=== PATIENT | female | born 1940 | race Caucasian/White ===

== ENCOUNTER 2024-09-19 11:54 | Inpatient (IN) | payer MEDICARE, MEDICAID, SELFPAY ==
[2024-09-19] VITALS (8 sets, daily range): BP systolic 101–146; BP diastolic 48–76; PULSE 50–95; RESP 15–18; TEMP 36.4–36.7; O2SAT 53–100
--- NOTE | 2024-09-19 12:20 | XR_ITS ---
Examination: Left hip AP, lateral, AP pelvis 3 views Technique: Hip AP lateral, AP pelvis, 3 views Exam date and time:September 19, 2024 1304 hours INDICATIONS: Patient fell today with into the left hip, left hip pain FINDINGS: Status post operative reduction internal fixation healed left hip fracture No acute hip fracture depicted Right hip bones of the pelvis intact IMPRESSION: No acute hip fracture noted.
--- NOTE | 2024-09-19 12:20 | XR_ITS ---
Examination: CT brain head without contrast. 2-D sagittal coronal reconstructions Date and time of exam:September 19, 2024 1246 hours INDICATIONS: Patient fell today with injury of the head, head pain CTDI: vol (mGy):44.2 DLP: (mGycm):878 Technique: Multiple CT axial sections of the brain have been obtained, 5 mm slice thickness. Contrast has not been administered. 2-D sagittal, coronal reconstructions have been obtained Low dose protocols were performed. One or more of the following dose reduction techniques were used; automated exposure control, adjustment of the mA and/or KV according to patient size, use of iterative reconstruction technique. Findings: No significant ventricular enlargement. Intra-axial or extra-axial hemorrhage density is not seen. No mass effect or midline shift Basal cisterns are not remarkable. Fourth ventricle is midline. Cranial vault intact. Impression: Negative for acute hemorrhage, mass effect or midline shift
--- NOTE | 2024-09-19 12:20 | XR_ITS ---
Examination: CT cervical spine without contrast 2-D sagittal reconstructions 2-D coronal reconstructions 3-D reconstructions. Exam date and time:September 19, 2024 1246 hours INDICATIONS: Patient fell today with injury to the neck, neck pain COMPARISON: September 10, 2022 CTDI:vol (mGy) 6.87 DLP: (mGycm) 143 Technique: Multiple 2 mm axial sections of the cervical spine have been obtained. The coronal and sagittal reconstructions have been obtained. 3-D reconstructions have been obtained. Low dose protocols were performed. One or more of the following dose reduction techniques were used; automated exposure control, adjustment of the mA and/or KV according to patient size, use of iterative reconstruction technique. Findings: Axial sections demonstrate intact base of the skull. C1 exhibit satisfactory relationship to the odontoid. No acute cervical vertebral body fracture seen. Alignment posterior spinous processes satisfactory. Impression: No acute cervical fracture.
--- NOTE | 2024-09-19 12:22 | EDNOTE_ITS ---
ED General RME/HPI General Chief complaint: Fall Stated complaint: LT HIP PAIN Time Seen by Provider: 09/19/24 12:17 Arrival date/time: 09/19/24 11:54 CC: Left hip pain HPI ground-level fall patient states she had a wobbly left leg when getting up from the commode walked over to her bedroom and then promptly fell. Patient denies LOC or syncope. Patient has history of falls, also has a history of subarachnoid hemorrhage states she does not think that she is on blood thinners. Patient is awake alert oriented x [address] Related Data Home Medications ?Medication ?Instructions ?Recorded ?Confirmed atorvastatin 40 mg tablet 40 mg PO QDAY 11/14/21 11/16/23 furosemide 20 mg tablet 20 mg PO QDAY 11/14/21 11/16/23 hydralazine 10 mg tablet 10 mg PO QID 11/14/21 11/16/23 metoprolol succinate 200 mg 200 mg PO QDAY 11/14/21 11/16/23 tablet,extended release 24 hr (Toprol XL) allopurinol 300 mg tablet 300 mg PO QDAY 07/04/22 11/16/23 famotidine 40 mg tablet 40 tab PO HS 07/04/22 11/16/23 isosorbide mononitrate 30 mg 1 tab PO QAM 07/04/22 11/16/23 tablet,extended release 24 hr levothyroxine 88 mcg tablet 1 tab PO QAM 07/04/22 11/16/23 oxybutynin chloride 10 mg 1 tab PO QDAY 07/04/22 11/16/23 tablet,extended release 24 hr sertraline 50 mg tablet 50 mg PO QDAY 07/04/22 11/16/23 trazodone 50 mg tablet 50 mg PO HS 09/11/22 11/16/23 estradiol 10 mcg vaginal tablet 10 mcg vaginal DIRECTED 03/26/23 11/16/23 (Vagifem) Previous Rx's ?Medication ?Instructions ?Recorded ibuprofen 400 mg tablet 400 mg PO Q8H PRN pain #10 tabs 09/16/22 Allergies Allergy/AdvReac Type Severity Reaction Status Date / Time Penicillins Allergy Intermediate SWELLING Verified 11/16/23 15:07 TO BODY Review of Systems Review of Systems Narrative Review of Systems: GEN: No fever, no chills, no weight loss EYES: No discharge, no visual changes, no pain HEENT: No ear pain, no congestion, no sore throat PULM: No shortness of breath, no cough, no congestion CV: No chest pain, no dyspnea on exertion, no palpitations GI: No nausea, no vomiting, no diarrhea, no pain, no constipation : No frequency, no urgency, no dysuria MUSC/SKEL: +hip pain, No joint pain, no back pain SKIN: No rash PSYCH: No hallucinations, no depression HEME/LYMPH: No easy bleeding or bruising tendencies NEURO: No weakness, no headache Past Medical History Past Medical History NEUROLOGIC: Negative Seizures CARDIAC: Positive Myocardial Infarction, Cardiac Arrhythmia, Coronary Artery Disease, Congestive Heart Failure and Hypertension RESPIRATORY: Negative Chronic Obstructive Pulmonary Disease (COPD) GENITOURINARY: Negative Renal Disease ENDOCRINE: Positive Hypothyroidism; Negative Diabetes Mellitus Type 1 or Diabetes Mellitus Type 2 OTHER HISTORY: Negative Blood Transfusions, Blood Transfusion Reaction or Anesthesia Reactions Surgical History SURGICAL: Positive Pacemaker Social History SMOKING STATUS: Never smoker SUBSTANCE USE: does not use ED Exam Narrative Physical exam: [General: Frail, does not appear in any acute distress Head normocephalic, no step-offs hematomas HEENT: Eyes pupils are PERRLA EOMs are intact within acceptable limits Neck is supple nontender Chest equal chest rise nontender to palpation Respiratory: Clear to auscultation no wheezes crackles or rubs CV: Rate rhythm is regular no murmurs rubs or clicks Abdomen is distended secondary to body habitus soft nontender no masses positive bowel sounds all 4 quadrants Back: No CVA tenderness no spinous process tenderness from cervical spine thoracic and lumbar spine Skin: Intact no petechiae rash induration ulceration or crepitus Extremities: No pain with pelvic rock pelvic squeeze range of motion of the left femur. Moving all other extremities against resistance cap refill less than 2 seconds neurosensory intact Neuro: Awake alert oriented x, person and place, Glascow coma 15 no focal deficits] Course Course Course Narrative: Patient's case discussed with Dr. Delgado, who saw the patient in the emergency is requesting admission with he will consult. He is also requesting a leg brace, CT of the left lower extremity from hip to ankle. Quality Measures none Orders Category Date Time Status EKG (ED ONLY) *Do not use* NOW Care 09/19/24 15:10 Completed Miscellaneous Nursing Order NOW Care 09/19/24 19:36 Active Consult to Orthopedic Stat Cons 09/19/24 19:30 Ordered Referral Physical Therapy Stat Cons 09/19/24 19:[address] cervical spine wo con Stat Exams 09/19/24 12:[address] head/brain wo con Stat Exams 09/19/24 12:[address] lower leg LT wo con Stat Exams 09/19/24 19:28 Completed EKG (ED Only) Stat Exams 09/19/24 15:10 Draft XR chest 1V Stat Exams 09/19/24 15:10 Completed XR femur LT 2V Stat Exams 09/19/24 14:18 Completed XR hip LT w pelvis 2-3V Stat Exams 09/19/24 12:20 Completed CBC Stat Lab 09/19/24 15:48 Completed CMP [Comprehensive Metabolic Panel] Stat Lab 09/19/24 15:48 Completed PT [Prothrombin Time with INR] Stat Lab 09/19/24 15:48 Completed PTT [Partial Thromboplastin Time] Stat Lab 09/19/24 15:48 Completed Type and Screen Stat Lab 09/19/24 15:48 Completed Morphine Inj Med 09/19/24 14:58 Discontinued 4 mg IVP X1 ONE Ondansetron Inj [Zofran Inj] Med 09/19/24 14:59 Discontinued 4 mg IV X1 ONE Sodium Chloride 0.9% 1000 ml [Ns] 1,000 ml Med 09/19/24 15:56 Active IV 65 mls/hr Vital Signs Vital signs: Vital Signs Temperature 97.6 F 09/19/24 12:29 Respiratory Rate 18 09/19/24 12:29 Blood Pressure 134/62 H 09/19/24 12:29 Pulse Oximetry (%) 53 L 09/19/24 12:29 Oxygen Delivery Method Room Air 09/19/24 12:29 [facility] Patient data External records reviewed:: [facility] previous records and EMS form Clinical information provided by:: patient and EMS Social determinants that could affect healthcare access:: none Patient has the following chronic illnesses:: Hyperlipidemia hypothyroidism hypertension history of coronary artery disease AICD subarachnoid hemorrhage knee replacement How is presenting disease/condition affected by chronic disease/condition?: u neffected by Evaluation data The following diagnostics were reviewed and interpreted by me:: lab results, radiology exam(s) and EKG tracing(s) Lab and/or radiology exams considered but not ordered:: EKG performed at 1616 shows a ventricular rate of 50 VT interval 136 QRS of 131 QTc of 463 this is electronically paced rhythm. CBC shows no acute leukocytosis there is a stable anemia no thrombocytopenia Coags within acceptable limits CMP shows no significant electrolyte imbalances renal impairment transaminitis or T. bili elevation. Pelvic x-ray is negative for any acute finding Femur x-ray shows a acute angulated displaced supracondylar fracture that appears old in nature Head and C-spine are negative for any acute finding requires emergent or immediate intervention. Interpretation Summary: Spoke with Dr. Vora, orthopedic surgeon, who worked on this patient in 2021 and states that this is all chronic in nature and not acute. Medications Medications considered but not ordered:: None Medication administrations:: Medication Administration History Acetaminophen (Acetaminophen 325 Mg Tablet) 650 mg PO Q6H PRN PRN Reason: PAIN OR FEVER > 101 Stop: 10/19/24 20:35 Hydrocodone Bitart/Acetaminophen (Hydrocodone/Apap 5/325 Tablet) 1 tab PO Q6HR PRN PRN Reason: PAIN SCALE 4-6 (Moderate Stop: 09/24/24 20:36 Allopurinol (Allopurinol 100 Mg Tablet) 300 mg PO QDAY JUANITO Stop: 10/20/24 08:59 Atorvastatin Calcium (Atorvastatin Calcium 20 Mg Tablet) 40 mg PO HS JUANITO Stop: 10/19/24 20:59 Last Admin: 09/19/24 22:17 Dose: 40 mg Documented By: EN Heparin Sodium (Porcine) (Heparin Sod Inj 5000 Unit/Ml Vial) 5,000 unit SC Q12HR JUANITO Stop: 10/03/24 20:59 Last Admin: 09/19/24 22:21 Dose: Not Given Documented By: SF Non-Admin Reason: Contraindicated Hydralazine HCl (Hydralazine Hcl 10 Mg Tablet) 10 mg PO TID JUANITO Stop: 10/19/24 21:59 Last Admin: 09/20/24 05:39 Dose: Not Given Documented By: MARGARETTE Non-Admin Reason: Contraindicated Admin: 09/19/24 22:22 Dose: Not Given Documented By: EN Non-Admin Reason: Contraindicated Sodium Chloride (Ns) 1,000 mls @ 65 mls/hr IV .[id number] JUANITO Stop: 10/19/24 15:55 Last Infusion: 09/19/24 22:19 Dose: 0 mls/hr Documented By: Admin: 09/19/24 16:20 Dose: 65 mls/hr Documented By: BLESSING Sodium Chloride (Ns) 1,000 mls @ 75 mls/hr IV .[id number] ONE Stop: 09/20/24 09:49 Last Admin: 09/19/24 22:20 Dose: 75 mls/hr Documented By: EN Levothyroxine Sodium (Levothyroxine Sodium 88 Mcg Tablet) 88 mcg PO ACBR JUANITO Stop: 10/20/24 05:59 Last Admin: 09/20/24 05:54 Dose: Not Given Documented By: MARGARETTE Non-Admin Reason: okay to hold pill per Dr. David Kramer. Morphine Sulfate (Morphine Sulf Inj 10 Mg/Ml Vial) 2 mg IVP Q4HR PRN PRN Reason: PAIN SCALE 7-10 (Severe Stop: 09/24/24 20:36 Pantoprazole Sodium (Pantoprazole Inj 40 Mg Vial) 40 mg IVP Q12HR JUANITO Stop: 10/19/24 20:59 Last Admin: 09/19/24 22:17 Dose: 40 mg Documented By: EN Sertraline HCl (Sertraline Hcl 25 Mg Tablet) 50 mg PO HS JUANITO Stop: 10/20/24 20:59 Trazodone HCl (Trazodone Hcl 50 Mg Tablet) 50 mg PO HS JUANITO Stop: 10/20/24 20:59 Discontinued Medications Morphine Sulfate (Morphine Sulf Inj 10 Mg/Ml Vial) 4 mg IVP X1 ONE Stop: 09/19/24 14:59 Last Admin: 09/19/24 15:36 Dose: 4 mg Documented By: BLESSING Ondansetron HCl (Ondansetron Inj 2 Mg/Ml Inj 2 Ml) 4 mg IV X1 ONE; Protocol Stop: 09/19/24 15:00 Last Admin: 09/19/24 15:36 Dose: 4 mg Documented By: BLESSING None Consultations Consultation(s) initiated? (list below): No Diagnosis Differential Diagnosis ED Complaint MDM: Nonunion chronic distal femur fracture, hip fracture, closed head injury Most likely diagnosis given after review of the tests above:: Nonunion chronic distal femur fracture Admission Indicated Admission indicated?: indicated Explain why admission is indicated or not indicated:: Quires further medical management Admission Request Was there a request for admission?: No Disposition Plan Disposition Plan: Admit Medical Decision Making Differential Diagnosis Differential Diagnosis: Nonunion chronic distal femur fracture, hip fracture, closed head injury Lab Data 09/20/24 05:11 09/20/24 05:11 Labs: Lab Results 09/19/24 Range/Units 15:48 WBC 5.9 (3.6-11.0) Thou/mm3 RBC 3.42 L (4.00-5.20) Miln/mm3 Hgb 11.6 L (12.0-16.0) g/dL Hct 35.6 L (36.0-46.0) % MCV 104 H (80-100) fL MCH 33.9 (25.0-35.0) pg MCHC 32.6 (31.0-37.0) g/dl RDW Std Deviation 53.9 H (36.4-46.3) fL Plt Count 112 L (140-440) Thou/mm3 Neut % (Auto) 75 (37-80) % Lymph % (Auto) 12 (10-50) % [place]arrow % (Auto) 10 (0-12) % Eos % (Auto) 3 (0-10) % Baso % (Auto) 1 (0-2.5) % Neut # (Auto) 4.4 (1.8-7.7) Thou/mm3 Lymph # (Auto) 0.7 L (1.0-4.8) Thou/mm3 Barrow # (Auto) 0.6 (0.0-0.8) Thou/mm3 Eos # (Auto) 0.2 (0.0-0.5) Thou/mm3 Baso # (Auto) 0.0 (0.0-0.2) Thou/mm3 Immature Gran # (Auto) 0.01 H (0.00-0.00) Thou/mm3 Absolute Nucleated RBC 0.00 (0.00-0.00) Thou/mm3 Immature Gran % 0 (0-0) % Nucleated RBC % 0 (0) /100 WBC PT 11.8 (9.0-12.2) Seconds INR 1.1 (0.9-1.3) APTT 25.9 (22.0-36.0) Seconds Sodium 142 (136-145) mMol/L Potassium 3.8 (3.4-5.1) mMol/L Chloride 109 H (98-107) mMol/L Carbon Dioxide 25.1 (20.0-31.0) mMol/L Anion Gap 8 (7-16) BUN 27 H (9-23) mg/dL Creatinine 1.0 (0.6-1.3) mg/dL Estim Creat Clear Calc 31.2 L (>60) mL/min eGFR 56 L (60 - ) See Note BUN/Creatinine Ratio 27 H (12-20) Ratio Glucose 99 (74-106) mg/dL Calculated Osmolality 288 (275-295) Calcium 9.3 (8.3-10.6) mg/dL Corrected Calcium 9.5 (8.5-10.1) mg/dL Total Bilirubin 0.6 (0.3-1.2) mg/dL AST 39 H (0-34) U/L ALT 56 H (10-49) U/L Alkaline Phosphatase 120 H (46-116) U/L Total Protein 5.9 (5.7-8.2) gm/dL Albumin 3.8 (3.4-4.8) gm/dL Globulin 2.1 L (2.3-3.5) gm/dL Albumin/Globulin Ratio 1.8 (1.2-2.2) Blood Type O Positive Antibody Screen NEGATIVE Blood Bank Wristband ID Yes Discharge Plan Plan Patient Disposition: Admit Acute Care w/in Hospital Patient condition on transfer: Stable Problem List Clinical Impression: Fracture of distal end of femur, Fall MD Attestation MD Attestation The patient was seen by the midlevel practitioner. I, the co-signing physician, was present during the entire ER visit. While I did not physically examine the patient, I was available for consultation as needed.
--- NOTE | 2024-09-19 14:18 | XR_ITS ---
Examination: AP erect 2 views Technique one AP lateral left femur 2 views Exam date and time: September 19, 2024 at 1439 hours INDICATIONS: Patient fell last night with injury to the femur, leg pain FINDINGS: Acute angulated displaced supracondylar fracture distal femur, the proximal femoral shaft displaced medially There is fracture of 3 of the sideplate screws and marked displacement of the femoral sideplate Significant narrowing left hip joint left hip intact IMPRESSION: Acute angulated displaced supracondylar fracture distal femur
--- NOTE | 2024-09-19 15:10 | XR_ITS ---
Examination: AP chest single view TECHNIQUE: AP portable semiupright chest single view Exam date and time: September 19, 2024 1521 hours Comparison September 10, 2022 INDICATIONS: Acute fracture right femur, preop chest x-ray FINDINGS: Normal heart size Stable position cardiac leads No pneumonia or pulmonary edema Severe osteopenia IMPRESSION: No active disease
--- NOTE | 2024-09-19 15:10 | EKG_ITS ---
[facility] Test Date: 2024-09-19 Pat Name: LISA CORRALES Department: Room: - Gender: Female Porter Marina: : 1940 Requested By: Devendra Heck Order Number: [id number] Reading MD: Devendra Heck Measurements Intervals Korbel Rate: 50 P: 195 IN: 136 QRS: 200 QRSD: 131 T: 61 QT: 491 QTc: 448 Interpretive Statements ELECTRONIC ATRIAL PACEMAKER ELECTRONIC VENTRICULAR PACEMAKER ABNORMAL RHYTHM ECG Compared to ECG 09/16/2022 08:07:25 Sinus rhythm no longer present Short IN interval no longer present Right ventricular hypertrophy no longer present Myocardial infarct finding no longer present /store/S0/[id number]/ecg/[id number].pdf
[2024-09-19] MEDS: ONDANSETRON INJ 2 MG/ML INJ 2 ML 4 MG IV (15:36)
[2024-09-19] MEDS: MORPHINE SULF INJ 10 MG/ML VIAL 4 MG IVP (15:36)
[2024-09-19 16:04] LABS: Basophils % (Auto) 1 % (0-2.5); Eosinophils # (Auto) 0.2 Thou/mm3 (0.0-0.5); Eosinophils % (Auto) 3 % (0-10); Hematocrit 35.6 % (36.0-46.0); Hemoglobin 11.6 g/dL (12.0-16.0); Immature Granulocytes % (Auto) 0 % (0-0); Immature Granulocytes Auto 0.01 Thou/mm3 (0.00-0.00); Lymphocytes # (Auto) 0.7 Thou/mm3 (1.0-4.8); Lymphocytes % (Auto) 12 % (10-50); Mean Corpuscular HGB Conc 32.6 g/dl (31.0-37.0); Mean Corpuscular Hemoglobin 33.9 pg (25.0-35.0); Mean Corpuscular Volume 104 fL (80-100); Monocytes # (Auto) 0.6 Thou/mm3 (0.0-0.8); Monocytes % (Auto) 10 % (0-12); Neutrophils # (Auto) 4.4 Thou/mm3 (1.8-7.7); Neutrophils % (Auto) 75 % (37-80); Nucleated Red Blood Cell % 0 /100 WBC (0); Platelet Count 112 Thou/mm3 (140-440); RDW Standard Deviation 53.9 fL (36.4-46.3); Red Blood Count 3.42 Miln/mm3 (4.00-5.20); White Blood Count 5.9 Thou/mm3 (3.6-11.0)
[2024-09-19 16:20] LABS: INR 1.1 (0.9-1.3); Partial Thromboplastin Time 25.9 Seconds (22.0-36.0); Prothrombin Time 11.8 Seconds (9.0-12.2)
[2024-09-19] MEDS: SODIUM CHLORIDE 0.9% 1000 ML 1,000 ML 65 ML IV (16:20)
[2024-09-19 16:29] LABS: Alanine Aminotransferase 56 U/L (10-49); Albumin, Serum 3.8 gm/dL (3.4-4.8); Albumin/Globulin Ratio 1.8 (1.2-2.2); Alkaline Phosphatase 120 U/L (46-116); Anion Gap 8 (7-16); Aspartate Amino Transferase 39 U/L (0-34); BUN/Creatinine Ratio 27 Ratio (12-20); Bilirubin,Total 0.6 mg/dL (0.3-1.2); Blood Urea Nitrogen 27 mg/dL (9-23); Calcium 9.3 mg/dL (8.3-10.6); Calcium (Corrected) 9.5 mg/dL (8.5-10.1); Carbon Dioxide 25.1 mMol/L (20.0-31.0); Chloride 109 mMol/L (98-107); Estimated Creatinine Clearance 31.2 mL/min (>60); Globulin 2.1 gm/dL (2.3-3.5); Glucose 99 mg/dL (74-106); Osmolality,Calculated 288 (275-295); Potassium 3.8 mMol/L (3.4-5.1); Sodium 142 mMol/L (136-145); Total Protein 5.9 gm/dL (5.7-8.2); eGFR 56 See Note
--- NOTE | 2024-09-19 19:28 | XR_ITS ---
Examination: CT left lower extremity, without contrast. 2-D sagittal reconstructions. 2-D coronal reconstructions. 3-D reconstructions. Date and time of exam:September 19, 2024 1737 hrs. Indications: Onset left lower leg pain today, patient fell with femur fracture CTDI: vol (mGy):9.4 DLP: (mGycm):791 Technique: Multiple 1.25 mm axial sections of the left lower extremity without intravenous contrast have been obtained. 2-D sagittal and coronal reconstructions have been obtained. 3-D reconstructions have been obtained. Low dose protocols were performed. One or more of the following dose reduction techniques were used; automated exposure control, adjustment of the mA and/or KV according to patient size, use of iterative reconstruction technique. Findings: Old healed fracture left femoral neck with satisfactory position orthopedic hardware Acute comminuted angulated displaced supracondylar fracture distal femur above the prosthetic femoral condyles The sideplate has displaced from the femoral shaft up to 28 mm with fracture of multiple the orthopedic sideplate screws Prosthetic tibial plateau tibia fibula appear intact Impression: Acute displaced comminuted angulated supracondylar fracture distal femur with disruption of the sideplate and fracture of the side plate screws
--- NOTE | 2024-09-19 19:30 | PD.ORTHCON ---
HPI Consult details Reason for consultation narrative: Deformity left lower extremity History of present illness: Patient is an 85-year-old female who over the past several years has had multiple falls. It has been a balance problem. She is also deformity of the left lower extremity. She has had a total knee arthroplasty, revision, distal femur fracture treated with implant that subsequently went on to fail. She then had a left intertrochanteric hip fracture in 2021 fixed with TFN implant. Since then she has had slightly increasing pain. More falls. She has seen several or more orthopedist to elected not to fix her nonunion distal femur fracture. Lives with x 58 years. He recently fell and had a complex fracture hip. He is now presently in a [facility]. She lives alone. She has been somewhat unstable. She has a sense that the left knee is going to give way. She has had several episodes where that has happened. When she fell the day was back away from her knee. She has had increasing pain in her left knee for a number of months. Past Medical History Past Medical History NEUROLOGIC: Negative Seizures CARDIAC: Positive Myocardial Infarction, Cardiac Arrhythmia, Coronary Artery Disease, Congestive Heart Failure and Hypertension RESPIRATORY: Negative Chronic Obstructive Pulmonary Disease (COPD) GENITOURINARY: Negative Renal Disease ENDOCRINE: Positive Hypothyroidism; Negative Diabetes Mellitus Type 1 or Diabetes Mellitus Type 2 OTHER HISTORY: Negative Blood Transfusions, Blood Transfusion Reaction or Anesthesia Reactions Surgical History SURGICAL: Positive Pacemaker Social History SMOKING STATUS: Never smoker SUBSTANCE USE: does not use Meds Home Medications and Allergies Home Medications ?Medication ?Instructions ?Recorded ?Confirmed ?Type atorvastatin 40 mg tablet 40 mg PO QDAY 11/14/21 11/16/23 History furosemide 20 mg tablet 20 mg PO QDAY 11/14/21 11/16/23 History hydralazine 10 mg tablet 10 mg PO QID 11/14/21 11/16/23 History metoprolol succinate 200 mg 200 mg PO QDAY 11/14/21 11/16/23 History tablet,extended release 24 hr (Toprol XL) allopurinol 300 mg tablet 300 mg PO QDAY 07/04/22 11/16/23 History famotidine 40 mg tablet 40 tab PO HS 07/04/22 11/16/23 History isosorbide mononitrate 30 mg 1 tab PO QAM 07/04/22 11/16/23 History tablet,extended release 24 hr levothyroxine 88 mcg tablet 1 tab PO QAM 07/04/22 11/16/23 History oxybutynin chloride 10 mg 1 tab PO QDAY 07/04/22 11/16/23 History tablet,extended release 24 hr sertraline 50 mg tablet 50 mg PO QDAY 07/04/22 11/16/23 History trazodone 50 mg tablet 50 mg PO HS 09/11/22 11/16/23 History estradiol 10 mcg vaginal tablet 10 mcg vaginal DIRECTED 03/26/23 11/16/23 History (Vagifem) Allergies Allergy/AdvReac Type Severity Reaction Status Date / Time Penicillins Allergy Intermediate SWELLING Verified 11/16/23 15:07 TO BODY Exam Vital Signs Temp Pulse Resp BP Pulse Ox O2 Del Method 98.1 F 53 L 15 138/76 H 98 Room Air 09/19/24 15:19 09/19/24 15:19 09/19/24 15:19 09/19/24 15:19 09/19/24 15:19 09/19/24 15:19 Vital signs stable Narrative Exam Very alert oriented pleasant woman in mild distress. Moves both upper extremities including shoulders elbows wrist hands and fingers Examination of her lower extremity shows that she has marked instability distal femur with marked angulation. Flexion extension left foot and ankle Results - Ortho Labs 09/19/24 15:48 09/19/24 15:48 Labs: Short CBC 09/19/24 Range/Units 15:48 WBC 5.9 (3.6-11.0) Thou/mm3 Hgb 11.6 L (12.0-16.0) g/dL Hct 35.6 L (36.0-46.0) % Plt Count 112 L (140-440) Thou/mm3 BMP 09/19/24 15:48 Sodium 142 Potassium 3.8 Chloride 109 H Carbon Dioxide 25.1 BUN 27 H Creatinine 1.0 Glucose 99 Calcium 9.3 Liver Function 09/19/24 Range/Units 15:48 Total Bilirubin 0.6 (0.3-1.2) mg/dL AST 39 H (0-34) U/L ALT 56 H (10-49) U/L Alkaline Phosphatase 120 H (46-116) U/L Albumin 3.8 (3.4-4.8) gm/dL Hemoglobin 11.6 Assessment & Plan Additional Assessment Additional comments: Patient has a complex problem. 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 The ends of the bone show repetitive movement between the distal femur metaphysis and proximal femur. 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 Marked instability. Plan Want to get a CT scan femur and tibia. I would like to get as much of the proximal tibial shaft with knee with as much distal femur proximally as possible. I want to get her in the shortest knee immobilizer possible. I would like to get her up with physical therapy tomorrow to see how stable she is weightbearing to tolerance left lower extremity
--- NOTE | 2024-09-19 20:45 | ESHP_ITS ---
<Statement entered by Devin Bernal MD - 09/20/24 08:45> I was present for the essential components of the history, physical examination, diagnosis, and treatment plan with the resident. I have reviewed the documentation, discussed the case with the resident and agree with the patient's care as documented by the resident. Devin Bernal MD Documentation for date of: 09/19/24 HPI History of Present Illness History of present illness: Fariba Acosta is an 84-year-old female with a past medical history of left hip fracture status post ORIF in 2021, distal femoral fracture treated with implant that subsequently failed, HFpEF (EF 55 to 60%, 2021), CAD status post 3 stents, status post pacemaker, status post ICD, distant history of CVA, hypothyroidism, depression, and insomnia who presents after ground-level fall while getting ready for bed. Denies head strike or loss of consciousness, but does have history of falls attributed to faulty balance on left leg. She was evaluated in ED by Dr. Delgado who recommends physical therapy tomorrow to assess how stable patient is weightbearing along with knee immobilizer. ED course: HR 50, BP 134/62, on 2 L nasal cannula saturating 99% LFTs and ALP mildly elevated CT cervical spine: no acute fracture, CT head: negative CT LLE: acute displaced comminuted angulated supracondylar fracture of distal femur with disruption of sideplate and fracture of sideplate screws XR left hip/pelvis: no acute fracture, CXR: negative PMHx: as noted above Medications: Metoprolol succinate, furosemide, levothyroxine, allopurinol, atorvastatin, sertraline, hydralazine, trazodone SHx: Denies cigarettes, alcohol, illicit drug use PSHx: ORIF left hip, total knee arthroplasty, left distal femur implant, cardiac stents, pacemaker, ICD Review of Systems Review of Systems Systems Reviewed: All systems reviewed, normal except as documented Exam Vital Signs Temp Pulse Resp BP Pulse Ox O2 Del Method O2 Flow Rate 98.1 F 54 L 16 142/50 H 99 Nasal Cannula 2 09/19/24 15:19 09/19/24 20:03 09/19/24 20:03 09/19/24 20:03 09/19/24 20:03 09/19/24 20:03 09/19/24 20:03 Narrative Exam General: AOx3, no acute distress, able to speak full sentences HEENT: NC/AT, mucous membranes moist, bilateral sclera anicteric Cardiovascular: regular rate and rhythm, S1/S2 present, no murmurs appreciated Pulmonary: clear to auscultation bilaterally, no rales/rhonchi/wheezes Abdominal: soft, non-tender, non-distended, no rebound/guarding, normal bowel sounds present Musculoskeletal: left lower extremity supracondylar deformity and externally rotated LLE Skin: warm and dry, intact, no rashes Neuro: CN II-XII intact, no focal deficits Results: Labs 09/20/24 05:11 09/20/24 05:11 Labs: Short CBC 09/19/24 Range/Units 15:48 WBC 5.9 (3.6-11.0) Thou/mm3 Hgb 11.6 L (12.0-16.0) g/dL Hct 35.6 L (36.0-46.0) % Plt Count 112 L (140-440) Thou/mm3 BMP 09/19/24 15:48 Sodium 142 Potassium 3.8 Chloride 109 H Carbon Dioxide 25.1 BUN 27 H Creatinine 1.0 Glucose 99 Calcium 9.3 Liver Function 09/19/24 Range/Units 15:48 Total Bilirubin 0.6 (0.3-1.2) mg/dL AST 39 H (0-34) U/L ALT 56 H (10-49) U/L Alkaline Phosphatase 120 H (46-116) U/L Albumin 3.8 (3.4-4.8) gm/dL Quality Measures Quality Measures VTE prophylaxis Advance care planning discussed with:: patient Medications Home Medications and Allergies Home Medications ?Medication ?Instructions ?Recorded ?Confirmed ?Type atorvastatin 40 mg tablet 40 mg PO QDAY 11/14/21 11/16/23 History furosemide 20 mg tablet 20 mg PO QDAY 11/14/21 11/16/23 History hydralazine 10 mg tablet 10 mg PO QID 11/14/21 11/16/23 History metoprolol succinate 200 mg 200 mg PO QDAY 11/14/21 11/16/23 History tablet,extended release 24 hr (Toprol XL) allopurinol 300 mg tablet 300 mg PO QDAY 07/04/22 11/16/23 History famotidine 40 mg tablet 40 tab PO HS 07/04/22 11/16/23 History isosorbide mononitrate 30 mg 1 tab PO QAM 07/04/22 11/16/23 History tablet,extended release 24 hr levothyroxine 88 mcg tablet 1 tab PO QAM 07/04/22 11/16/23 History oxybutynin chloride 10 mg 1 tab PO QDAY 07/04/22 11/16/23 History tablet,extended release 24 hr sertraline 50 mg tablet 50 mg PO QDAY 07/04/22 11/16/23 History trazodone 50 mg tablet 50 mg PO HS 09/11/22 11/16/23 History estradiol 10 mcg vaginal tablet 10 mcg vaginal DIRECTED 03/26/23 11/16/23 History (Vagifem) Allergies Allergy/AdvReac Type Severity Reaction Status Date / Time Penicillins Allergy Intermediate SWELLING Verified 11/16/23 15:07 TO BODY Visit Medications Acetaminophen (Acetaminophen 325 Mg Tablet) 650 mg PO Q6H PRN PRN Reason: PAIN OR FEVER > 101 Stop: 10/19/24 20:35 Hydrocodone Bitart/Acetaminophen (Hydrocodone/Apap 5/325 Tablet) 1 tab PO Q6HR PRN PRN Reason: PAIN SCALE 4-6 (Moderate Stop: 09/24/24 20:36 Heparin Sodium (Porcine) (Heparin Sod Inj 5000 Unit/Ml Vial) 5,000 unit SC Q12HR JUANITO Stop: 10/03/24 20:59 Sodium Chloride (Ns) 1,000 mls @ 65 mls/hr IV .[id number] JUANITO Stop: 10/19/24 15:55 Last Admin: 09/19/24 16:20 Dose: 65 mls/hr Sodium Chloride (Ns) 1,000 mls @ 75 mls/hr IV .[id number] ONE Stop: 09/20/24 09:49 Levothyroxine Sodium (Levothyroxine Sodium 88 Mcg Tablet) 88 mcg PO ACBR JUANITO Stop: 10/20/24 05:59 Morphine Sulfate (Morphine Sulf Inj 10 Mg/Ml Vial) 2 mg IVP Q4HR PRN PRN Reason: PAIN SCALE 7-10 (Severe Stop: 09/24/24 20:36 Pantoprazole Sodium (Pantoprazole Inj 40 Mg Vial) 40 mg IVP Q12HR JUANITO Stop: 10/19/24 20:59 Discontinued Medications Morphine Sulfate (Morphine Sulf Inj 10 Mg/Ml Vial) 4 mg IVP X1 ONE Stop: 09/19/24 14:59 Last Admin: 09/19/24 15:36 Dose: 4 mg Ondansetron HCl (Ondansetron Inj 2 Mg/Ml Inj 2 Ml) 4 mg IV X1 ONE; Protocol Stop: 09/19/24 15:00 Last Admin: 09/19/24 15:36 Dose: 4 mg Assessment & Plan Plan Fariba Acosta is an 84-year-old female with a past medical history of left hip fracture status post ORIF in 2021, distal femoral fracture treated with implant that subsequently failed, HFpEF (EF 55 to 60%, 2021), CAD status post 3 stents, status post pacemaker, status post ICD, distant history of CVA, hypothyroidism, depression, and insomnia who is admitted for acute left femoral fracture. #Left femoral fracture #History of femoral fracture #History of left knee arthroplasty #Recurrent falls ? Orthopedics consulted, appreciate recommendations ? Left knee immobilizer ? Physical therapy tomorrow ? Pain management: Morphine 2 mg IV every 4 hours, [place] 5 every 6 hours ? N.p.o. after midnight #CAD, status post 3 stents #Status post pacemaker #Status post ICD ? Atorvastatin 40 mg p.o. at bedtime #HFpEF Echo 2021 showed EF 55 to 60% Defer home metoprolol and furosemide, as patient is bradycardic and not in fluid overload, respectively. States that she follows Dr. Castellanos in [place] but has not seen him in a long time. Has an appointment this month. #Hypertension Defer metoprolol as above. ? Hydralazine 10 mg p.o. 3 times daily #Gout ? Allopurinol 300 mg daily #Hypothyroidism ? Levothyroxine 88 mcg daily #Depression #Insomnia ? Sertraline 50 mg daily ? Trazodone 50 mg daily Hospital management: Disposition: 2-3 hospital nights Fluids: NS at 75 mL/hr Diet: NPO after midnight Lines: peripheral DVT prophylaxis: heparin SC BID GI prophylaxis: pantoprazole 40 mg IV BID CODE STATUS: full code ----- Plan discussed with attending physician Dr. Dolores Kramer MD PGY-1 Internal Medicine
[2024-09-19] MEDS: PANTOPRAZOLE INJ 40 MG VIAL IVP (22:17)
[2024-09-19] MEDS: ATORVASTATIN CALCIUM 20 MG TABLET 40 MG PO (22:17)
[2024-09-19] MEDS: SODIUM CHLORIDE 0.9% 1000 ML 1,000 ML 75 ML IV (22:20)
[2024-09-20] VITALS (9 sets, daily range): BP systolic 105–137; BP diastolic 51–86; PULSE 50–78; RESP 16–20; TEMP 36.2–36.7; O2SAT 91–94; BMI 27.1
[2024-09-20 06:32] LABS: Basophils % (Auto) 1 % (0-2.5); Eosinophils # (Auto) 0.3 Thou/mm3 (0.0-0.5); Eosinophils % (Auto) 7 % (0-10); Hematocrit 33.2 % (36.0-46.0); Hemoglobin 10.6 g/dL (12.0-16.0); Immature Granulocytes % (Auto) 0 % (0-0); Immature Granulocytes Auto 0.01 Thou/mm3 (0.00-0.00); Lymphocytes % (Auto) 22 % (10-50); Mean Corpuscular HGB Conc 31.9 g/dl (31.0-37.0); Mean Corpuscular Hemoglobin 33.9 pg (25.0-35.0); Mean Corpuscular Volume 106 fL (80-100); Monocytes # (Auto) 0.4 Thou/mm3 (0.0-0.8); Monocytes % (Auto) 9 % (0-12); Neutrophils # (Auto) 2.7 Thou/mm3 (1.8-7.7); Neutrophils % (Auto) 61 % (37-80); Nucleated Red Blood Cell % 0 /100 WBC (0); Platelet Count 109 Thou/mm3 (140-440); RDW Standard Deviation 55.3 fL (36.4-46.3); Red Blood Count 3.13 Miln/mm3 (4.00-5.20); White Blood Count 4.4 Thou/mm3 (3.6-11.0)
[2024-09-20 07:07] LABS: Partial Thromboplastin Time 28.4 Seconds (22.0-36.0); Prothrombin Time 11.4 Seconds (9.0-12.2)
[2024-09-20 07:17] LABS: Alanine Aminotransferase 40 U/L (10-49); Albumin, Serum 3.5 gm/dL (3.4-4.8); Albumin/Globulin Ratio 1.9 (1.2-2.2); Alkaline Phosphatase 103 U/L (46-116); Anion Gap 6 (7-16); Aspartate Amino Transferase 27 U/L (0-34); BUN/Creatinine Ratio 24 Ratio (12-20); Bilirubin,Total 0.6 mg/dL (0.3-1.2); Blood Urea Nitrogen 26 mg/dL (9-23); Calcium (Corrected) 9.4 mg/dL (8.5-10.1); Carbon Dioxide 26.9 mMol/L (20.0-31.0); Chloride 110 mMol/L (98-107); Cholesterol 83 mg/dL (132-200); Creatinine (Component) 1.1 mg/dL (0.6-1.3); Estimated Creatinine Clearance 32.7 mL/min (>60); Globulin 1.8 gm/dL (2.3-3.5); Glucose 90 mg/dL (74-106); HDL Cholesterol 41 mg/dL (40-60); LDL Cholesterol,Calculated 22 mg/dL (0-130); Magnesium 1.8 mg/dL (1.6-2.6); Osmolality,Calculated 289 (275-295); Phosphorous 3.3 mg/dL (2.4-5.1); Sodium 143 mMol/L (136-145); Total Protein 5.3 gm/dL (5.7-8.2); Triglycerides 99 mg/dL (30-150); eGFR 50 See Note
[2024-09-20] MEDS: PANTOPRAZOLE INJ 40 MG VIAL IVP ×2 (08:22→22:54)
[2024-09-20] MEDS: MORPHINE SULF INJ 10 MG/ML VIAL 2 MG IVP ×2 (10:02→23:14)
[2024-09-20] MEDS: SODIUM CHLORIDE 0.9% 1000 ML 1,000 ML 65 ML IV ×2 (10:07→23:15)
--- NOTE | 2024-09-20 11:21 | ESPR_ITS ---
<Statement entered by Bhaskar Long MD - 09/20/24 18:30> Senior Resident Attestation: I supervised/discussed management plan with dental internship physician Dr. Robles, and was involved in the care of this patient. I personally saw and examined the patient and discussed the assessment and plan with the entire medicine team, including my attending. I agree with the assessment and plan as documented. Patient's care was discussed with attending physician, Dr. Smith. Bhaskar Long MD PGY-2. Documentation for date of: 09/20/24 Subjective Subjective Interval history: Patient was seen at bedside this morning. No overnight events. Patient states she does not have any pain at this time. She stated she was able to walk with PT. Will wait for orthopedic recommendations. Exam Vital Signs Temp Pulse Resp BP Pulse Ox O2 Del Method O2 Flow Rate 98.1 F 78 16 124/55 L 93 L Nasal Cannula 2 09/20/24 08:00 09/20/24 08:00 09/20/24 08:00 09/20/24 08:00 09/20/24 08:00 09/20/24 04:00 09/19/24 22:00 Narrative Exam General: A/O x3, no acute distress, frail elderly female Eyes: PERRL, EOMI. Anicteric, vision grossly intact. R eye lid sluggish, but able to open. Ears: No ear pain, no ear discharge, Hearing grossly intact. Nose: No nasal discharge. Mouth/Throat: Dry mucous membranes, no redness, no lesions. Neck: Neck supple, non-tender, no cervical lymphadenopathy. Lungs: Clear CHRISTOPHER to auscultation and percussion, No accessory muscle use. Cardio: Normal S1/S2, regular rhythm, no murmurs, no JVD Abdomen: Soft, non-tender, no palpable masses, peristalsis present, no guarding or rebound. Extremities: Symmetrical, no peripheral edema , non-tender, peripheral pulses presents. Skin: No rashes, no lesions, warm to touch. Scar in L knee from prior surgery Neuro: No focal neurological deficits. able to move all extremities. Psych: Cooperative, appropriate mood and effect. Objective Labs 09/22/24 05:08 09/22/24 05:08 Labs: Laboratory Results - last 24 hr 09/19/24 09/20/24 15:48 05:11 WBC 5.9 4.4 RBC 3.42 L 3.13 L Hgb 11.6 L 10.6 L Hct 35.6 L 33.2 L MCV 104 H 106 H MCH 33.9 33.9 MCHC 32.6 31.9 RDW Std Deviation 53.9 H 55.3 H Plt Count 112 L 109 L Neut % (Auto) 75 61 Lymph % (Auto) 12 22 [place] % (Auto) 10 9 Eos % (Auto) 3 7 Baso % (Auto) 1 1 Neut # (Auto) 4.4 2.7 Lymph # (Auto) 0.7 L 1.0 [place] # (Auto) 0.6 0.4 Eos # (Auto) 0.2 0.3 Baso # (Auto) 0.0 0.0 Immature Gran # (Auto) 0.01 H 0.01 H Absolute Nucleated RBC 0.00 0.00 Immature Gran % 0 0 Nucleated RBC % 0 0 PT 11.8 11.4 INR 1.1 1.0 APTT 25.9 28.4 Sodium 142 143 Potassium 3.8 4.0 Chloride 109 H 110 H Carbon Dioxide 25.1 26.9 Anion Gap 8 6 L BUN 27 H 26 H Creatinine 1.0 1.1 Estim Creat Clear Calc 31.2 L 32.7 L eGFR 56 L 50 L BUN/Creatinine Ratio 27 H 24 H Glucose 99 90 Calculated Osmolality 288 289 Calcium 9.3 9.0 Corrected Calcium 9.5 9.4 Phosphorus 3.3 Magnesium 1.8 Total Bilirubin 0.6 0.6 AST 39 H 27 ALT 56 H 40 Alkaline Phosphatase 120 H 103 Total Protein 5.9 5.3 L Albumin 3.8 3.5 Globulin 2.1 L 1.8 L Albumin/Globulin Ratio 1.8 1.9 Triglycerides 99 Cholesterol 83 L LDL Cholesterol, Calc 22 HDL Cholesterol 41 Cholesterol/HDL Ratio 2.0 L Blood Type O Positive Antibody Screen NEGATIVE Blood Bank Wristband ID Yes Quality Measures Quality Measures VTE prophylaxis Advance care planning discussed with:: patient Assessment & Plan Assessment Current Active Medications: Generic Name Dose Route Start Last Admin Trade Name Freq PRN Reason Stop Dose Admin Acetaminophen 650 mg 09/19/24 20:36 Acetaminophen 325 Mg Tablet PO 10/19/24 20:35 Q6H PRN PAIN OR FEVER > 101 Hydrocodone Bitart/Acetaminophen 1 tab 09/19/24 20:37 Hydrocodone/Apap 5/325 Tablet PO 09/24/24 20:36 Q6HR PRN PAIN SCALE 4-6 (Moderate Allopurinol 300 mg 09/20/24 09:00 09/20/24 08:22 Allopurinol 100 Mg Tablet PO 10/20/24 08:59 Not Given QDAY JUANITO Atorvastatin Calcium 40 mg 09/19/24 21:00 09/19/24 22:17 Atorvastatin Calcium 20 Mg Tablet PO 10/19/24 20:59 40 mg HS JUANITO Administration Heparin Sodium (Porcine) 5,000 unit 09/19/24 21:00 09/20/24 08:23 Heparin Sod Inj 5000 Unit/Ml Vial SC 10/03/24 20:59 Not Given Q12HR JUANITO Hydralazine HCl 10 mg 09/19/24 22:00 09/20/24 05:39 Hydralazine Hcl 10 Mg Tablet PO 10/19/24 21:59 Not Given TID JUANITO Sodium Chloride 1,000 mls @ 65 mls/hr 09/19/24 15:56 09/20/24 10:07 Ns IV 10/19/24 15:55 65 mls/hr .[id number] JUANITO Administration Levothyroxine Sodium 88 mcg 09/20/24 06:00 09/20/24 05:54 Levothyroxine Sodium 88 Mcg Tablet PO 10/20/24 05:59 Not Given ACBR JUANITO Morphine Sulfate 2 mg 09/19/24 20:37 09/20/24 10:02 Morphine Sulf Inj 10 Mg/Ml Vial IVP 09/24/24 20:36 2 mg Q4HR PRN Administration PAIN SCALE 7-10 (Severe Pantoprazole Sodium 40 mg 09/19/24 21:00 09/20/24 08:22 Pantoprazole Inj 40 Mg Vial IVP 10/19/24 20:59 40 mg Q12HR JUANITO Administration Sertraline HCl 50 mg 09/20/24 21:00 Sertraline Hcl 25 Mg Tablet PO 10/20/24 20:59 HS JUANITO Trazodone HCl 50 mg 09/20/24 21:00 Trazodone Hcl 50 Mg Tablet PO 10/20/24 20:59 HS JUANITO Plan 84 y/o Female with PMH of left hip fracture s/p ORIF, distal femoral fracture with failed implant, recurrent falls, HFpEF (EF 55-60% in 2021), CAD s/p stents, pacemaker, and ICD, CVA, hypothyroidism,gout, depression, and insonmia was admitted to the hospital on 09/19/2024 for left femoral complex fracture. #Left femoral complex fracture #Hx of L hip fracture s/p ORIF #Hx of L femoral fracture with failed implant #Recurrent falls -Patient had a ground level fall and subsequently had trauma to her L LE. -Head CT and Cervical spine CT unremarkable -Hip/Pelvis X-ray unremarkable -Femur X-ray (L) showed acute angulated displaced supracondylar fracture distal femur -LE CT showed acute displaced comminuted angulated supracondylar fracture distal femur with disruption of the sideplate and fracture of the side plate screws. Plan: -Pain management medication prn -Referred to PT -Orthopedic surgery consulted (Dr. Delgado), appreciate recommendations. -Will continue to monitor #Normocytic normochromic anemia #Thrombocytopenia -Patient has Hx of anemia with baseline Hgb in the 10-11 and low platelets in 90-100 -Hgb today 10.6 and platelets 109 -No active signs of bleeding Plan: -Will transfuse if Hgb less than 7 -Will continue to monitor #HFpEF (EF 55-60% 2021) #CAD s/p stents #S/P pacemaker #S/P ICD -Echo in 2021 revealed EF 55-60% -Continue atorvastatin 40mg HS #Hx of HTN -Continue hydralazine 10mg TID -Holding metoprolol as patient BP is adequately controlled #Hx of gout -Continue allopurinol 300mg daily #Hx of hypothyroidism -Continue levothyroxine 88mcg daily #Hx of depression #Hx of insomnia -Continue sertraline 50mg daily and trazadone 50 mg daily Disposition: Patient seen in med surg pending ortho recommendations Diet: NPO GI prophylaxis: protonix DVT prophylaxis: Heparin Code:Full Case disclosed with Attending Dr. Smith and My senior Dr. Long PGY2. Joe Caba PGY1 Attending Provider Attestation/Addendum 84-year-old female with history of left hip ORIF with failed implant and history of CAD status post stenting, heart failure with preserved EF pacemaker placement who presented for left femoral complex fracture. Emergency room physician discussed with orthopedic team and recommended admission to [facility] and ortho team to follow. I reviewed above note and agree with findings and plans. I have also personally examined the patient with medicine team and went over assessment and plan with medical team including dental internship and resident physician.
--- NOTE | 2024-09-20 11:32 | PC.SS ---
Addendum entered by TETO Guerrero 09/20/24 15:45: Rounding note: patient here for surgery intervention, declined SNF. Request for home health order. Original Note: Initial assessment: Patient is an 84 year old female admitted for left femoral fracture. Patient is alert and oriented. Patient lives at home, alone as her is at a SNF. Patient informs she is followed by Dr. Kirt Persaud at [facility] for primary care. Her pharmacy is [facility]. Patient informs she requires minimal assistance with ADLs. Patient states she has a wheelchair and walker at home to assist with mobility. Discharge plan was discussed and patient wants to return home, she is agreeable to home health. Declined SNF. No preferred home health agency. Patient states her friend, Stef is able to assist with transport home. D/c plan: home health Contact: spouse, Kamaljit Acosta
[2024-09-20] MEDS: HYDROcodone/APAP 5/325 TABLET 1 TAB PO (19:31)
[2024-09-20] MEDS: SERTRALINE HCL 25 MG TABLET 50 MG PO (22:54)
[2024-09-20] MEDS: ATORVASTATIN CALCIUM 20 MG TABLET 40 MG PO (22:54)
[2024-09-20] MEDS: traZODone HCL 50 MG TABLET PO (22:54)
--- NOTE | 2024-09-20 23:01 | PD.ORTHCONPN ---
Subjective Subjective Brief History: Patient is an 85-year-old female who over the past several years has had multiple falls. It has been a balance problem. She is also deformity of the left lower extremity. She has had a total knee arthroplasty, revision, distal femur fracture treated with implant that subsequently went on to fail. She then had a left intertrochanteric hip fracture in 2021 fixed with TFN implant. Since then she has had slightly increasing pain. More falls. She has seen several or more orthopedist to elected not to fix her nonunion distal femur fracture. Lives with x 58 years. He recently fell and had a complex fracture hip. He is now presently in a care home. She lives alone. She has been somewhat unstable. She has a sense that the left knee is going to give way. She has had several episodes where that has happened. When she fell the day was back away from her knee. She has had increasing pain in her left knee for a number of months. Narrative: Patient's pain well-managed with [place]. Got up with PT. She said she went out into the hallway. She says she does not want to live this way. She is not suicidal Exam Vital Signs Temp Pulse Resp BP Pulse Ox O2 Del Method O2 Flow Rate 97.4 F 53 L 18 137/67 H 94 L Room Air 2 09/20/24 16:00 09/20/24 16:00 09/20/24 16:00 09/20/24 16:00 09/20/24 16:00 09/20/24 12:00 09/19/24 22:00 Vital signs stable Narrative Exam Patient is a knee immobilizer. Obvious deformity distal left femur. Valgus deformity is correctable. Still short. Has had this problem several years Objective - Ortho Labs 09/20/24 05:11 09/20/24 05:11 Labs: Laboratory Results - last 24 hr 09/20/24 05:11 WBC 4.4 RBC 3.13 L Hgb 10.6 L Hct 33.2 L MCV 106 H MCH 33.9 MCHC 31.9 RDW Std Deviation 55.3 H Plt Count 109 L Neut % (Auto) 61 Lymph % (Auto) 22 [place] % (Auto) 9 Eos % (Auto) 7 Baso % (Auto) 1 Neut # (Auto) 2.7 Lymph # (Auto) 1.0 [place] # (Auto) 0.4 Eos # (Auto) 0.3 Baso # (Auto) 0.0 Immature Gran # (Auto) 0.01 H Absolute Nucleated RBC 0.00 Immature Gran % 0 Nucleated RBC % 0 PT 11.4 INR 1.0 APTT 28.4 Sodium 143 Potassium 4.0 Chloride 110 H Carbon Dioxide 26.9 Anion Gap 6 L BUN 26 H Creatinine 1.1 Estim Creat Clear Calc 32.7 L eGFR 50 L BUN/Creatinine Ratio 24 H Glucose 90 Calculated Osmolality 289 Calcium 9.0 Corrected Calcium 9.4 Phosphorus 3.3 Magnesium 1.8 Total Bilirubin 0.6 AST 27 ALT 40 Alkaline Phosphatase 103 Total Protein 5.3 L Albumin 3.5 Globulin 1.8 L Albumin/Globulin Ratio 1.9 Triglycerides 99 Cholesterol 83 L LDL Cholesterol, Calc 22 HDL Cholesterol 41 Cholesterol/HDL Ratio 2.0 L Hemoglobin 10 creatinine 1.1 Assessment & Plan Assessment Additional comments: 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 I told her we will contact Dr. monson. I told her he is fellowship trained. He will give us a good idea whether or not correction should be attempted. There would be a very major operation. She has managed for some time. She says she can make bread in her kitchen. I told her at a minimum she needs to go to rehab for further physical therapy. Will make sure that she is safe as possible at home. She has been in contact with her . He recently had a hip fracture treated at our hospital. Plan Will asked Dr. Monson who would take a look and see what possibly could be done at this point. She does have very significant osteopenia. History of heart disease stents x 3 implantable defibrillator. Will get Dr. Austin Sanchez to take a look at her. He is her driver license reviewing officer Documentation for date of: 09/20/24
[2024-09-21] VITALS (8 sets, daily range): BP systolic 117–162; BP diastolic 62–76; PULSE 51–68; RESP 16–19; TEMP 36.2–36.9; O2SAT 92–95; BMI 13.0
--- NOTE | 2024-09-21 01:07 | PC.NURSE ---
ambulated to restroom with walker, weight bearing as tolerated to left lower extremity, with left knee immobilizer on. Standby assist, tolerated well.
[2024-09-21] MEDS: LEVOTHYROXINE SODIUM 88 MCG TABLET PO (05:49)
--- NOTE | 2024-09-21 05:53 | PC.NURSE ---
re pt allergy verification- Pt don't know of any allergy.
--- NOTE | 2024-09-21 05:53 | PC.NURSE ---
re home medd rec- Pt don't remember home med lists, It should be in the computer.
[2024-09-21 05:58] LABS: Basophils % (Auto) 1 % (0-2.5); Eosinophils # (Auto) 0.3 Thou/mm3 (0.0-0.5); Eosinophils % (Auto) 7 % (0-10); Hematocrit 32.3 % (36.0-46.0); Hemoglobin 10.1 g/dL (12.0-16.0); Immature Granulocytes % (Auto) 0 % (0-0); Immature Granulocytes Auto 0.01 Thou/mm3 (0.00-0.00); Lymphocytes # (Auto) 0.9 Thou/mm3 (1.0-4.8); Lymphocytes % (Auto) 21 % (10-50); Mean Corpuscular HGB Conc 31.3 g/dl (31.0-37.0); Mean Corpuscular Hemoglobin 34.4 pg (25.0-35.0); Mean Corpuscular Volume 110 fL (80-100); Monocytes # (Auto) 0.3 Thou/mm3 (0.0-0.8); Monocytes % (Auto) 7 % (0-12); Neutrophils # (Auto) 2.8 Thou/mm3 (1.8-7.7); Neutrophils % (Auto) 64 % (37-80); Nucleated Red Blood Cell % 0 /100 WBC (0); Platelet Count 104 Thou/mm3 (140-440); RDW Standard Deviation 57.3 fL (36.4-46.3); Red Blood Count 2.94 Miln/mm3 (4.00-5.20); White Blood Count 4.3 Thou/mm3 (3.6-11.0)
[2024-09-21 06:25] LABS: Alanine Aminotransferase 31 U/L (10-49); Albumin, Serum 3.4 gm/dL (3.4-4.8); Albumin/Globulin Ratio 1.9 (1.2-2.2); Alkaline Phosphatase 99 U/L (46-116); Anion Gap 6 (7-16); Aspartate Amino Transferase 17 U/L (0-34); BUN/Creatinine Ratio 25 Ratio (12-20); Bilirubin,Total 0.5 mg/dL (0.3-1.2); Blood Urea Nitrogen 28 mg/dL (9-23); Calcium 8.5 mg/dL (8.3-10.6); Carbon Dioxide 24.5 mMol/L (20.0-31.0); Chloride 112 mMol/L (98-107); Creatinine (Component) 1.1 mg/dL (0.6-1.3); Estimated Creatinine Clearance 32.7 mL/min (>60); Globulin 1.8 gm/dL (2.3-3.5); Glucose 94 mg/dL (74-106); Magnesium 1.8 mg/dL (1.6-2.6); Osmolality,Calculated 288 (275-295); Potassium 3.9 mMol/L (3.4-5.1); Sodium 142 mMol/L (136-145); Total Protein 5.2 gm/dL (5.7-8.2); eGFR 50 See Note
[2024-09-21] MEDS: allopurinoL 100 MG TABLET 300 MG PO (09:04)
[2024-09-21] MEDS: PANTOPRAZOLE INJ 40 MG VIAL IVP ×2 (09:04→21:43)
--- NOTE | 2024-09-21 09:37 | ECHO_ITS ---
Transthoracic Echo Report Ht (in): 60 Wt (lb): 138 Exam Location: [facility] Status: Inpatient Supervisor Shipping: Emelia Dennis Indications: Procedure Performed: BP: 162 / 76 HR: 60 Technical Quality: Fair MEASUREMENTS (Male / Female) Normal Values 2D ECHO LV Diastolic Diameter PLAX 4.1 cm 4.2 - 5.9 / 3.9 - 5.3 cm LV Systolic Diameter PLAX 2.6 cm IVS Diastolic Thickness 0.8 cm 0.6 - 1.0 / 0.6 - 0.9 cm LVPW Diastolic Thickness 0.8 cm 0.6 - 1.0 / 0.6 - 0.9 cm LV Relative Wall Thickness 0.4 LVOT Diameter 1.8 cm LA Volume Index 21.0 cm?/m? 16 - 28 cm?/m? Ascending Aorta Diameter 3.9 cm M-MODE Aortic Root Diameter MM 2.7 cm LA Systolic Diameter MM 4.1 cm LA Ao Ratio MM 1.5 AV Cusp Separation MM 2.1 cm DOPPLER AV Peak Velocity 127.0 cm/s AV Peak Gradient 6.5 mmHg AV Mean Gradient 3.0 mmHg AV Velocity Time Integral 31.2 cm LVOT Peak Velocity 84.2 cm/s LVOT Peak Gradient 2.8 mmHg LVOT Velocity Time Integral 21.2 cm LVOT Cardiac Index 1966.2 cm?/min?m? AV Area Cont Eq vti 1.7 cm? AV Area Cont Eq pk 1.7 cm? MV Peak Velocity 94.7 cm/s MV Peak Gradient 3.6 mmHg MV Mean Velocity 59.0 cm/s MV Mean Gradient 2.0 mmHg MV Area PHT 3.1 cm? MR Peak Velocity 458.5 cm/s MR Peak Gradient 84.1 mmHg Mitral E Point Velocity 85.9 cm/s Mitral A Point Velocity 105.0 cm/s Mitral E to A Ratio 0.8 LV E' Lateral Velocity 8.6 cm/s Mitral E to LV E' Lateral Ratio 10.0 LV E' Septal Velocity 6.1 cm/s Mitral E to LV E' Septal Ratio 14.1 TR Peak Velocity 253.0 cm/s TR Peak Gradient 25.6 mmHg FINDINGS Left Ventricle Normal left ventricular size, wall thickness, systolic function with no obvious regional wall motion abnormalities. The ejection fraction is visually estimated at 60-65 %. Right Ventricle The right ventricle is normal in size and systolic function. The estimated right ventricular systoli c pressure, 39 mmHg. RAP 5. Pacing wire present. Left Atrium The left atrium is normal by two-dimensional, color flow and Doppler imaging with no structural abnormalities, no thrombus formation present. Right Atrium The right atrium is normal by two-dimensional imaging, color flow and Doppler imaging with no struct ural abnormalities, no thrombus formation present. Atrial Septum The interatrial septum appears normal with no evidence of a shunt. Aorta The ascending aorta is mildly dilated. 3.9cm. Mitral Valve The mitral valve is normal by two-dimensional, color flow and Doppler interrogation. There is modera te mitral valve regurgitation. Aortic Valve The aortic valve is trileaflet and normal by two-dimensional, color flow and Doppler interrogation. There is trace aortic valve regurgitation. Tricuspid Valve The tricuspid valve is normal by two-dimensional, color flow and Doppler interrogation. There is mil d tricuspid valve regurgitation. Pulmonic Valve There is no significant pulmonic valve regurgitation. Vessels The pulmonary artery appears normal. The inferior vena cava pulmonary and hepatic veins appear clotilde l. Pericardium The pericardium is normal by two-dimensional imaging. There is no significant pericardial effusion. CONCLUSIONS Normal LV size and function. Estimated EF 60-65% Normal RV size and function. Estimated RVSP 39mmHg, Pacing wire present. The ascending aorta is mildly dilated. 3.9cm. Mild mitral regurgitation Mild tricuspid regurgitation Trace AI. Lisseth Mcelroy (Electronically Signed) Final Date: 21 September 2024 17:55
[2024-09-21] MEDS: MORPHINE SULF INJ 10 MG/ML VIAL 2 MG IVP (12:00)
--- NOTE | 2024-09-21 12:32 | ESCONSULT_ITS ---
<Statement entered by Jc Sanchez MD - 09/23/24 09:02> I personally went over the consultation report findings patient admitted because of fracture of the hip will review the findings patient appears to be low cardiac risk for surgery cardiac echo performed showed normal ejection fraction. I went over all the findings in detail with Dr. Benton PGY 2 patient is low cardiac risk for surgery. HPI Data of Consult Consult date: 09/21/24 Requesting Physician: Enoch Smith MD Admitting Provider: Merlin Kramer MD Attending Provider: Enoch Smith MD Primary Care Provider: Physician No Primary/Family Consult Narrative Reason for consult: Cardiac clearance History of present illness: This 84-year-old female with a past medical history of left hip fracture status post ORIF in 2021, distal femoral fracture treated with implant that subsequently failed, HFpEF (EF 55 to 60%, 2021), CAD status post 3 stents, status post pacemaker, status post ICD, distant history of CVA, hypothyroidism, depression, and insomnia who presents after ground-level fall while getting ready for bed. Denies head strike or loss of consciousness, but does have history of falls attributed to faulty balance on left leg. She was evaluated in ED by Dr. Delgado who recommends physical therapy tomorrow to assess how stable patient is weightbearing along with knee immobilizer.in the ED, HR 50, BP 134/62, on 2 L nasal cannula saturating 99%LFTs and ALP mildly elevated.CT cervical spine: no acute fracture, CT head: negative. CT LLE: acute displaced comminuted angulated supracondylar fracture of distal femur with disruption of sideplate and fracture of sideplate screws. XR left hip/pelvis: no acute fracture, CXR: negative PMHx: as noted above Medications: Metoprolol succinate, furosemide, levothyroxine, allopurinol, atorvastatin, sertraline, hydralazine, trazodone SHx: Denies cigarettes, alcohol, illicit drug use PSHx: ORIF left hip, total knee arthroplasty, left distal femur implant, cardiac stents, pacemaker, ICD 09/21/2024: Cardiology team consulted for cardiac clearance for left femur fracture surgery. Patient denied any chest pain or shortness of breath. Endorses having recurrent falls and knee surgeries before. She ended up having ground-level fall complicated with fracture. Vitals showed bradycardia and mild hypertension. Labs revealed stable hemoglobin at 10.1. Chemistry panel unremarkable. Kidney functions showed GFR 50, BUN [address] lower extremity showed acute displaced comminuted angulated supracondylar fracture distal femur with disruption of sideplate. EKG showed electronic atrial pacemaker with QTc 448 and pulse rate 50. Chest x-ray showed no active disease. Head CT was negative. Cervical spine CT showed no acute fracture. We will follow-up on echocardiogram to evaluate recent cardiac functions. Patient does have bradycardia seen on telemetry. Primary team holding metoprolol given bradycardia and giving hydralazine 10 mg 3 times daily. cc:: cc: Enoch Smith MD Review of Systems Review of Systems Systems Reviewed: All systems reviewed, normal except as documented Past Medical History Past Medical History NEUROLOGIC: Negative Seizures CARDIAC: Positive Myocardial Infarction, Cardiac Arrhythmia, Coronary Artery Disease, Congestive Heart Failure and Hypertension RESPIRATORY: Negative Chronic Obstructive Pulmonary Disease (COPD) GENITOURINARY: Negative Renal Disease ENDOCRINE: Positive Hypothyroidism; Negative Diabetes Mellitus Type 1 or Diabetes Mellitus Type 2 OTHER HISTORY: Negative Blood Transfusions, Blood Transfusion Reaction or Anesthesia Reactions Surgical History SURGICAL: Positive Pacemaker Social History SMOKING STATUS: Never smoker SUBSTANCE USE: does not use Exam Vital Signs Temp Pulse Resp BP Pulse Ox O2 Del Method O2 Flow Rate 97.1 F 51 L 19 135/71 H 93 L Room Air 2 09/21/24 12:00 09/21/24 12:00 09/21/24 12:00 09/21/24 12:00 09/21/24 12:00 09/21/24 12:00 09/19/24 22:00 Narrative Exam GENERAL APPEARANCE: AxOx4, frail elderly female in mild distress. Saturating well on room air. HEENT: NC, AT. MMM. EOMI, clear conjunctiva, oropharynx clear. NECK: Supple without lymphadenopathy. No stiffness or restricted ROM. HEART: paced rhythm, normal S1/S2, no m/r/g. Pacemaker present. LUNGS: CTAB, moving air well. No crackles or wheezes are heard. ABDOMEN: Soft, nontender, nondistended with good bowel sounds heard. BACK: No CVAT, no obvious deformity. EXTREMITIES: Bilateral extremities were evaluated and demonstrates sensation intact to light touch. Palpable pedal pulses are present. No significant edema is present.Left knee demonstrates significant pain and tenderness to palpation. Her pulses are intact. There is she has pain with any range of motion of her knee. It is externally rotated NEUROLOGICAL: Grossly nonfocal. Alert and oriented x 3 CN not formally tested but appear grossly intact. Skin: Warm and dry without any rash. Results Labs 09/21/24 04:58 09/21/24 04:58 Labs: Short CBC 09/21/24 Range/Units 04:58 WBC 4.3 (3.6-11.0) Thou/mm3 Hgb 10.1 L (12.0-16.0) g/dL Hct 32.3 L (36.0-46.0) % Plt Count 104 L (140-440) Thou/mm3 BMP 09/21/24 04:58 Sodium 142 Potassium 3.9 Chloride 112 H Carbon Dioxide 24.5 BUN 28 H Creatinine 1.1 Glucose 94 Calcium 8.5 Liver Function 09/21/24 Range/Units 04:58 Total Bilirubin 0.5 (0.3-1.2) mg/dL AST 17 (0-34) U/L ALT 31 (10-49) U/L Alkaline Phosphatase 99 (46-116) U/L Albumin 3.4 (3.4-4.8) gm/dL Quality Measures Quality Measures VTE prophylaxis Advance care planning discussed with:: other Medications Home Medications and Allergies Home Medications ?Medication ?Instructions ?Recorded ?Confirmed ?Type atorvastatin 40 mg tablet 40 mg PO QDAY 11/14/21 11/16/23 History furosemide 20 mg tablet 20 mg PO QDAY 11/14/21 11/16/23 History hydralazine 10 mg tablet 10 mg PO QID 11/14/21 11/16/23 History metoprolol succinate 200 mg 200 mg PO QDAY 11/14/21 11/16/23 History tablet,extended release 24 hr (Toprol XL) allopurinol 300 mg tablet 300 mg PO QDAY 07/04/22 11/16/23 History famotidine 40 mg tablet 40 tab PO HS 07/04/22 11/16/23 History isosorbide mononitrate 30 mg 1 tab PO QAM 07/04/22 11/16/23 History tablet,extended release 24 hr levothyroxine 88 mcg tablet 1 tab PO QAM 07/04/22 11/16/23 History oxybutynin chloride 10 mg 1 tab PO QDAY 07/04/22 11/16/23 History tablet,extended release 24 hr sertraline 50 mg tablet 50 mg PO QDAY 07/04/22 11/16/23 History trazodone 50 mg tablet 50 mg PO HS 09/11/22 11/16/23 History estradiol 10 mcg vaginal tablet 10 mcg vaginal DIRECTED 03/26/23 11/16/23 History (Vagifem) Allergies Allergy/AdvReac Type Severity Reaction Status Date / Time Penicillins Allergy Intermediate SWELLING Verified 11/16/23 15:07 TO BODY Visit Medications Acetaminophen (Acetaminophen 325 Mg Tablet) 650 mg PO Q6H PRN PRN Reason: PAIN OR FEVER > 101 Stop: 10/19/24 20:35 Hydrocodone Bitart/Acetaminophen (Hydrocodone/Apap 5/325 Tablet) 1 tab PO Q6HR PRN PRN Reason: PAIN SCALE 4-6 (Moderate Stop: 09/24/24 20:36 Last Admin: 09/20/24 19:31 Dose: 1 tab Allopurinol (Allopurinol 100 Mg Tablet) 300 mg PO QDAY JUANITO Stop: 10/20/24 08:59 Last Admin: 09/21/24 09:04 Dose: 300 mg Atorvastatin Calcium (Atorvastatin Calcium 20 Mg Tablet) 40 mg PO HS JUANITO Stop: 10/19/24 20:59 Last Admin: 09/20/24 22:54 Dose: 40 mg Hydralazine HCl (Hydralazine Hcl 10 Mg Tablet) 10 mg PO TID JUANITO Stop: 10/19/24 21:59 Last Admin: 09/21/24 05:33 Dose: Not Given Sodium Chloride (Ns) 1,000 mls @ 65 mls/hr IV .[id number] JUANITO Stop: 10/19/24 15:55 Last Admin: 09/20/24 23:15 Dose: 65 mls/hr Levothyroxine Sodium (Levothyroxine Sodium 88 Mcg Tablet) 88 mcg PO ACBR JUANITO Stop: 10/20/24 05:59 Last Admin: 09/21/24 05:49 Dose: 88 mcg Morphine Sulfate (Morphine Sulf Inj 10 Mg/Ml Vial) 2 mg IVP Q4HR PRN PRN Reason: PAIN SCALE 7-10 (Severe Stop: 09/24/24 20:36 Last Admin: 09/21/24 12:00 Dose: 2 mg Pantoprazole Sodium (Pantoprazole Inj 40 Mg Vial) 40 mg IVP Q12HR JUANITO Stop: 10/19/24 20:59 Last Admin: 09/21/24 09:04 Dose: 40 mg Sertraline HCl (Sertraline Hcl 25 Mg Tablet) 50 mg PO HS JUANITO Stop: 10/20/24 20:59 Last Admin: 09/20/24 22:54 Dose: 50 mg Trazodone HCl (Trazodone Hcl 50 Mg Tablet) 50 mg PO HS JUANITO Stop: 10/20/24 20:59 Last Admin: 09/20/24 22:54 Dose: 50 mg Discontinued Medications Heparin Sodium (Porcine) (Heparin Sod Inj 5000 Unit/Ml Vial) 5,000 unit SC Q12HR JUANITO Stop: 10/03/24 20:59 Last Admin: 09/20/24 22:00 Dose: Not Given Sodium Chloride (Ns) 1,000 mls @ 75 mls/hr IV .[id number] ONE Stop: 09/20/24 09:49 Last Admin: 09/19/24 22:20 Dose: 75 mls/hr Lactulose (Lactulose Syrup 20 Gm/30 Ml Udc) 20 gm PO X1 ONE; Protocol Stop: 09/21/24 12:05 Morphine Sulfate (Morphine Sulf Inj 10 Mg/Ml Vial) 4 mg IVP X1 ONE Stop: 09/19/24 14:59 Last Admin: 09/19/24 15:36 Dose: 4 mg Ondansetron HCl (Ondansetron Inj 2 Mg/Ml Inj 2 Ml) 4 mg IV X1 ONE; Protocol Stop: 09/19/24 15:00 Last Admin: 09/19/24 15:36 Dose: 4 mg Assessment & Plan Plan This 84-year-old female with a past medical history of left hip fracture status post ORIF in 2021, distal femoral fracture treated with implant that subsequently failed, HFpEF (EF 55 to 60%, 2021), CAD status post 3 stents, status post pacemaker, status post ICD, distant history of CVA, hypothyroidism depression, and insomnia who is admitted for acute left femoral fracture. Cardiology team consulted for cardiac clearance. # HFpEF EF 55-60% per 2021 # Hypertension # CAD post 3 stents # Status post ICD?D # Status post pacemaker # Sinus bradycardia ?Patient follows Dr. Castellanos in [place] but has not been seen him in long time. EKG showed atrial pacemaker rhythm with pulse rate 50. ?Patient has a longstanding history of left knee pain. Known history of distal femoral nonunion. She had multiple falls in the past and reports her knee feels unstable. Patient had a ground-level fall and subsequently had trauma to her left lower extremity. ?Patient did not use metoprolol and Lasix given bradycardia and no fluid overload respectively. ? Echo from 2021 showed EF 55-60%. Plan: ? Will follow-up on new echocardiogram to evaluate recent cardiac functions given significant cardiac history ? Continue hydralazine 10 3 times daily and atorvastatin 40 mg at bedtime ? Avoid beta-blockers due to bradycardia ? Orthopedics following the case for left femur fracture surgery ? Pain management as needed ? Daily labs #Left femoral fracture #History of femoral fracture #History of left knee arthroplasty #Recurrent falls #Gout #Hypothyroidism #Depression #Insomnia #Macrocytic anemia Rest of the management as per primary care team. Thank you very much for consulting cardiology team. Will follow-up on echocardiogram to evaluate cardiac functions given significant cardiac history. Continue hydralazine 10 3 times daily for now. Plan of care discussed with oil analyst, Dr. Daniel Benton MD, PGY 2
[2024-09-21] MEDS: LACTULOSE SYRUP 20 GM/30 ML UDC PO (12:48)
[2024-09-21] MEDS: hydrALAZINE HCL 10 MG TABLET PO ×2 (13:33→21:41)
--- NOTE | 2024-09-21 13:39 | PD.ORTHCONPN ---
Subjective Subjective Brief History: Patient is a 84-year-old female with a longstanding history of left knee pain. She has a known history of a distal femoral nonunion. She has been ambulating on this. She has had multiple falls in the fast and reports her knee feels unstable. Her original left total knee replacement was done 22 years ago and she subsequently had a distal femur fracture treated 2 years ago. This was complicated by nonunion. The patient is a poor historian and has no idea that her hardware has failed completely and catastrophically Exam Vital Signs Temp Pulse Resp BP Pulse Ox O2 Del Method O2 Flow Rate 97.1 F 51 L 19 135/71 H 93 L Room Air 2 09/21/24 12:00 09/21/24 13:33 09/21/24 12:00 09/21/24 13:33 09/21/24 12:00 09/21/24 12:00 09/19/24 22:00 Additional findings Additional findings: Patient is in no acute distress and is cooperative with the examination today. Patient has a normal mood and affect. Breathing is nonlabored. In no respiratory distress. Bilateral extremities were evaluated and demonstrates sensation intact to light touch. Palpable pedal pulses are present. No significant edema is present. Left knee demonstrates significant pain and tenderness to palpation. Her pulses are intact. There is she has pain with any range of motion of her knee. It is externally rotated Objective - Ortho Labs 09/21/24 04:58 09/21/24 04:58 Labs: Laboratory Results - last 24 hr 09/21/24 04:58 WBC 4.3 RBC 2.94 L Hgb 10.1 L Hct 32.3 L MCV 110 H MCH 34.4 MCHC 31.3 RDW Std Deviation 57.3 H Plt Count 104 L Neut % (Auto) 64 Lymph % (Auto) 21 [place] % (Auto) 7 Eos % (Auto) 7 Baso % (Auto) 1 Neut # (Auto) 2.8 Lymph # (Auto) 0.9 L [place] # (Auto) 0.3 Eos # (Auto) 0.3 Baso # (Auto) 0.0 Immature Gran # (Auto) 0.01 H Absolute Nucleated RBC 0.00 Immature Gran % 0 Nucleated RBC % 0 Sodium 142 Potassium 3.9 Chloride 112 H Carbon Dioxide 24.5 Anion Gap 6 L BUN 28 H Creatinine 1.1 Estim Creat Clear Calc 32.7 L eGFR 50 L BUN/Creatinine Ratio 25 H Glucose 94 Calculated Osmolality 288 Calcium 8.5 Corrected Calcium 9.0 Magnesium 1.8 Total Bilirubin 0.5 AST 17 ALT 31 Alkaline Phosphatase 99 Total Protein 5.2 L Albumin 3.4 Globulin 1.8 L Albumin/Globulin Ratio 1.9 Impressions Impression: Knee x-ray demonstrates catastrophic failure with a distal femur nonunion and multiple broken screws as well as a plate there is no longer in bone. 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 There are [place] implants for her total knee replacement. There is also a intermediate TFN which complicates the surgery. I measured 10 cm of remaining bone for a distal femoral replacement Assessment & Plan Diagnosis (1) Fracture of distal end of femur: Status: Acute Assessment Additional comments: Patient is a 84-year-old female with a left distal femur fracture nonunion and multiple past medical histories including stents and a pacemaker. The patient has catastrophic failure of her hardware adjacent to an intermediarte nail. Treatment options for this patient include distal femoral replacement with a prophylactic plate to span the intermediate nail or removal of the nail and distal femoral replacement. There is not a very large segment in order for DFR to be placed. The biggest issue for this case is the broken screws. Unfortunately, we do not have a radiolucent table which would make removing the broken screws tremendously difficult. The patient would benefit from a tertiary care center as this is a very large surgery for a community hospital setting. The patient is likely benefit from a place that has a traumatologist as well as a joint reconstruction surgeon which was a really leave only tertiary care and [facility]. I discussed with the patient that she has a huge problem and this is a quite a complex surgery. I told her that the surgery will take me about 4 to 5 hours and that I cannot do it mainly because I will have significant difficulty removing her hardware without a radiolucent table. Plan I recommend okay transfer of the patient to a university or tertiary care center. I do not recommend the patient bearing weight. She should be nonweightbearing on the left lower extremity. Documentation for date of: 09/21/24
--- NOTE | 2024-09-21 14:33 | PC.SS ---
Rounding note: pending transfer for ortho.
[2024-09-21] MEDS: SODIUM CHLORIDE 0.9% 1000 ML 1,000 ML 65 ML IV (15:26)
[2024-09-21] MEDS: Magnesium Sulfate 1 gm Ivpb 1 GM/100 ML BAG IV (15:27)
--- NOTE | 2024-09-21 15:49 | PC.PT ---
as per Dr. Monson, Patient will be NWB status at this time.
--- NOTE | 2024-09-21 17:02 | ESPR_ITS ---
<Statement entered by Bhaskar Long MD - 09/21/24 17:21> Senior Resident Attestation: I supervised/discussed management plan with internal audit senior manager physician Dr. Robles, and was involved in the care of this patient. I personally saw and examined the patient and discussed the assessment and plan with the entire medicine team, including my attending. I agree with the assessment and plan as documented. Patient's care was discussed with attending physician, Dr. Smith. Bhaskar Long MD PGY-2. Documentation for date of: 09/21/24 Subjective Subjective Interval history: Patient was seen at bedside this morning. No overnight events. Dr. Monson saw the patient today and recommended to transfer the patient to [place] or tertiary care center given complex case. No other complaints at this time.Will initiate transfer. Exam Vital Signs Temp Pulse Resp BP Pulse Ox O2 Del Method O2 Flow Rate 98.3 F 61 16 133/68 H 94 L Room Air 2 09/21/24 16:00 09/21/24 16:00 09/21/24 16:00 09/21/24 16:00 09/21/24 16:00 09/21/24 16:00 09/19/24 22:00 Narrative Exam General: A/O x3, no acute distress, frail elderly female Eyes: PERRL, EOMI. Anicteric, vision grossly intact. R eye lid sluggish, but able to open. Ears: No ear pain, no ear discharge, Hearing grossly intact. Nose: No nasal discharge. Mouth/Throat: Dry mucous membranes, no redness, no lesions. Neck: Neck supple, non-tender, no cervical lymphadenopathy. Lungs: Clear CHRISTOPHER to auscultation and percussion, No accessory muscle use. Cardio: Normal S1/S2, regular rhythm, no murmurs, no JVD Abdomen: Soft, non-tender, no palpable masses, peristalsis present, no guarding or rebound. Extremities: Symmetrical, no peripheral edema , non-tender, peripheral pulses presents. Skin: No rashes, no lesions, warm to touch. immobilizer in L knee Neuro: No focal neurological deficits. able to move all extremities. Psych: Cooperative, appropriate mood and effect. Objective Labs 09/22/24 05:08 09/22/24 05:08 Labs: Laboratory Results - last 24 hr 09/21/24 04:58 WBC 4.3 RBC 2.94 L Hgb 10.1 L Hct 32.3 L MCV 110 H MCH 34.4 MCHC 31.3 RDW Std Deviation 57.3 H Plt Count 104 L Neut % (Auto) 64 Lymph % (Auto) 21 [place] % (Auto) 7 Eos % (Auto) 7 Baso % (Auto) 1 Neut # (Auto) 2.8 Lymph # (Auto) 0.9 L [place] # (Auto) 0.3 Eos # (Auto) 0.3 Baso # (Auto) 0.0 Immature Gran # (Auto) 0.01 H Absolute Nucleated RBC 0.00 Immature Gran % 0 Nucleated RBC % 0 Sodium 142 Potassium 3.9 Chloride 112 H Carbon Dioxide 24.5 Anion Gap 6 L BUN 28 H Creatinine 1.1 Estim Creat Clear Calc 32.7 L eGFR 50 L BUN/Creatinine Ratio 25 H Glucose 94 Calculated Osmolality 288 Calcium 8.5 Corrected Calcium 9.0 Magnesium 1.8 Total Bilirubin 0.5 AST 17 ALT 31 Alkaline Phosphatase 99 Total Protein 5.2 L Albumin 3.4 Globulin 1.8 L Albumin/Globulin Ratio 1.9 Quality Measures Quality Measures VTE prophylaxis Advance care planning discussed with:: patient Assessment & Plan Assessment Current Active Medications: Generic Name Dose Route Start Last Admin Trade Name Freq PRN Reason Stop Dose Admin Acetaminophen 650 mg 09/19/24 20:36 Acetaminophen 325 Mg Tablet PO 10/19/24 20:35 Q6H PRN PAIN OR FEVER > 101 Hydrocodone Bitart/Acetaminophen 1 tab 09/19/24 20:37 09/20/24 19:31 Hydrocodone/Apap 5/325 Tablet PO 09/24/24 20:36 1 tab Q6HR PRN Administration PAIN SCALE 4-6 (Moderate Allopurinol 300 mg 09/20/24 09:00 09/21/24 09:04 Allopurinol 100 Mg Tablet PO 10/20/24 08:59 300 mg QDAY JUANITO Administration Atorvastatin Calcium 40 mg 09/19/24 21:00 09/20/24 22:54 Atorvastatin Calcium 20 Mg Tablet PO 10/19/24 20:59 40 mg HS JUANITO Administration Heparin Sodium (Porcine) 5,000 unit 09/21/24 15:24 Heparin Sod Inj 5000 Unit/Ml Vial SC 10/05/24 13:59 Q8HR JUANITO Hydralazine HCl 10 mg 09/19/24 22:00 09/21/24 13:33 Hydralazine Hcl 10 Mg Tablet PO 10/19/24 21:59 10 mg TID JUANITO Administration Sodium Chloride 1,000 mls @ 65 mls/hr 09/19/24 15:56 09/21/24 15:26 Ns IV 10/19/24 15:55 65 mls/hr .[id number] JUANITO Administration Levothyroxine Sodium 88 mcg 09/20/24 06:00 09/21/24 05:49 Levothyroxine Sodium 88 Mcg Tablet PO 10/20/24 05:59 88 mcg ACBR JUANITO Administration Morphine Sulfate 2 mg 09/19/24 20:37 09/21/24 12:00 Morphine Sulf Inj 10 Mg/Ml Vial IVP 09/24/24 20:36 2 mg Q4HR PRN Administration PAIN SCALE 7-10 (Severe Pantoprazole Sodium 40 mg 09/19/24 21:00 09/21/24 09:04 Pantoprazole Inj 40 Mg Vial IVP 10/19/24 20:59 40 mg Q12HR JUANITO Administration Sertraline HCl 50 mg 09/20/24 21:00 09/20/24 22:54 Sertraline Hcl 25 Mg Tablet PO 10/20/24 20:59 50 mg HS JUANITO Administration Trazodone HCl 50 mg 09/20/24 21:00 09/20/24 22:54 Trazodone Hcl 50 Mg Tablet PO 10/20/24 20:59 50 mg HS JUANITO Administration Plan 84 y/o Female with PMH of left hip fracture s/p ORIF, distal femoral fracture with failed implant, recurrent falls, HFpEF (EF 55-60% in 2021), CAD s/p stents, pacemaker, and ICD, CVA, hypothyroidism,gout, depression, and insonmia was admitted to the hospital on 09/19/2024 for left femoral complex fracture. #Left femoral complex fracture #Hx of L hip fracture s/p ORIF #Hx of L femoral fracture with failed implant #Recurrent falls -Patient had a ground level fall and subsequently had trauma to her L LE. -Head CT and Cervical spine CT unremarkable -Hip/Pelvis X-ray unremarkable -Femur X-ray (L) showed acute angulated displaced supracondylar fracture distal femur -LE CT showed acute displaced comminuted angulated supracondylar fracture distal femur with disruption of the sideplate and fracture of the side plate screws. -dr. Monson recommended to transfer patient Plan: -Patient will be transfered -Pain management medication prn -Referred to PT -Orthopedic surgery consulted (Dr. Delgado and Dr. Monson), appreciate recommendations. -Will continue to monitor #Macrocytic anemia #Thrombocytopenia -Patient has Hx of anemia with baseline Hgb in the 10-11 and low platelets in 90-100 -Hgb today 10.1 and platelets 104, MCV 110 -No active signs of bleeding Plan: -Will transfuse if Hgb less than 7 -Will continue to monitor #HFpEF (EF 55-60% 2021) #CAD s/p stents #S/P pacemaker #S/P ICD -Echo in 2021 revealed EF 55-60% -Continue atorvastatin 40mg HS -cardiology consulted for cardiac clearance, ordered echo #Hx of HTN -Continue hydralazine 10mg TID -Holding metoprolol as patient BP is adequately controlled #Hx of gout -Continue allopurinol 300mg daily #Hx of hypothyroidism -Continue levothyroxine 88mcg daily #Hx of depression #Hx of insomnia -Continue sertraline 50mg daily and trazadone 50 mg daily Disposition: Patient seen in med surg will initiate transfer Diet: Cardiac GI prophylaxis: protonix DVT prophylaxis: Heparin sc Code:Full Case disclosed with Attending Dr. Smith and My senior Dr. Long PGY2. Joe Caba PGY1 Attending Provider Attestation/Addendum 84-year-old female with history of left hip ORIF with failed implant and history of CAD status post stenting, heart failure with preserved EF pacemaker placement who presented for left femoral complex fracture. Emergency room physician discussed with orthopedic team and [facility] and [facility] team to follow. I reviewed above note and agree with findings and plans. I have also personally examined the patient with medicine team and went over assessment and plan with medical team including internal audit senior manager and resident physician.
--- NOTE | 2024-09-21 19:30 | PC.CM ---
I received a referral to transfer patient for higher level orthopedic care and management. I spoke to M/S charge nurse and asked that they start the transfer because I was busy with my other open transfer and I would not have time to start this patient?s transfer.
--- NOTE | 2024-09-21 21:25 | PC.NURSE ---
Notify receiving facility the time pt was picked up by EMT.
[2024-09-21] MEDS: SERTRALINE HCL 25 MG TABLET 50 MG PO (21:40)
[2024-09-21] MEDS: traZODone HCL 50 MG TABLET PO (21:41)
[2024-09-21] MEDS: ATORVASTATIN CALCIUM 20 MG TABLET 40 MG PO (21:41)
[2024-09-21] MEDS: HEPARIN SOD INJ 5000 UNIT/ML VIAL SC (21:49)
[2024-09-21] MEDS: HYDROcodone/APAP 5/325 TABLET 1 TAB PO (21:56)
[2024-09-22] VITALS (9 sets, daily range): BP systolic 105–128; BP diastolic 58–73; PULSE 56–77; RESP 14–18; TEMP 36.1–37.2; O2SAT 92–96
[2024-09-22] MEDS: SODIUM CHLORIDE 0.9% 1000 ML 1,000 ML 65 ML IV (05:53)
[2024-09-22] MEDS: LEVOTHYROXINE SODIUM 88 MCG TABLET PO (05:54)
[2024-09-22] MEDS: hydrALAZINE HCL 10 MG TABLET PO ×3 (05:54→21:51)
[2024-09-22] MEDS: HEPARIN SOD INJ 5000 UNIT/ML VIAL SC ×3 (05:57→21:51)
[2024-09-22 06:02] LABS: Basophils % (Auto) 1 % (0-2.5); Eosinophils # (Auto) 0.3 Thou/mm3 (0.0-0.5); Eosinophils % (Auto) 8 % (0-10); Hematocrit 30.7 % (36.0-46.0); Hemoglobin 9.7 g/dL (12.0-16.0); Immature Granulocytes % (Auto) 0 % (0-0); Immature Granulocytes Auto 0.01 Thou/mm3 (0.00-0.00); Lymphocytes # (Auto) 0.8 Thou/mm3 (1.0-4.8); Lymphocytes % (Auto) 19 % (10-50); Mean Corpuscular HGB Conc 31.6 g/dl (31.0-37.0); Mean Corpuscular Hemoglobin 34.2 pg (25.0-35.0); Mean Corpuscular Volume 108 fL (80-100); Monocytes # (Auto) 0.4 Thou/mm3 (0.0-0.8); Monocytes % (Auto) 9 % (0-12); Neutrophils # (Auto) 2.7 Thou/mm3 (1.8-7.7); Neutrophils % (Auto) 64 % (37-80); Nucleated Red Blood Cell % 0 /100 WBC (0); Platelet Count 100 Thou/mm3 (140-440); RDW Standard Deviation 55.7 fL (36.4-46.3); Red Blood Count 2.84 Miln/mm3 (4.00-5.20); White Blood Count 4.2 Thou/mm3 (3.6-11.0)
[2024-09-22 06:45] LABS: Alanine Aminotransferase 23 U/L (10-49); Albumin, Serum 3.1 gm/dL (3.4-4.8); Albumin/Globulin Ratio 1.7 (1.2-2.2); Alkaline Phosphatase 94 U/L (46-116); Anion Gap 5 (7-16); Aspartate Amino Transferase 15 U/L (0-34); BUN/Creatinine Ratio 26 Ratio (12-20); Bilirubin,Total 0.4 mg/dL (0.3-1.2); Blood Urea Nitrogen 26 mg/dL (9-23); Calcium 8.3 mg/dL (8.3-10.6); Carbon Dioxide 24.5 mMol/L (20.0-31.0); Chloride 113 mMol/L (98-107); Estimated Creatinine Clearance 35.9 mL/min (>60); Globulin 1.8 gm/dL (2.3-3.5); Glucose 94 mg/dL (74-106); Magnesium 1.8 mg/dL (1.6-2.6); Osmolality,Calculated 287 (275-295); Phosphorous 2.9 mg/dL (2.4-5.1); Potassium 3.8 mMol/L (3.4-5.1); Sodium 142 mMol/L (136-145); Total Protein 4.9 gm/dL (5.7-8.2); eGFR 56 See Note
--- NOTE | 2024-09-22 08:05 | PC.CM ---
Addendum entered by Irving Keane RN 09/22/24 19:18: 1914 received call from Armando at [facility] financial counseling dept. He stated once pt is medically accepted, pt would require insurance auth. I informed him that pt insurance was contacted by me and Avani THOMAS is OK transferring the pt and will give auth once I have an accepting facility info. Financial counseling number is [phone]. Addendum entered by Irving Keane RN 09/22/24 18:05: 1805 clinicals sent to [facility]. 1759 received called from [facility], spoke to Brenna that Dr. Marquez/orthopedic sx declined the pt and stated pt needs tertiary level hospital. Addendum entered by Irving Keane RN 09/22/24 17:55: 1740 received call from [facility], spoke to Polo and gave clinicals. She stated to fax clinicals now. Addendum entered by Irving Keane RN 09/22/24 15:53: 1512 Spoke to Avani [facility] at [phone] Ext [phone]. Informed her the conservation with [facility]. She stated once the team uploads the clinicals to the portal. She will review and give auth to [facility]. 1501 spoke to Burak KEARNEY at [facility], she stated she won't be able to present the case to orthopedic team unless she has financial clearance per their orthopedic protocol. I informed her I already spoke to pt insurance and insurance is OK for the transfer. If she can give me the accepting info then I can get auth. She stated she doesn't have accepting and I need to speak to her financial team. She transferred my call to her financial team. I spoke to Rosanne at [phone]. Rosanne stated she can't help me. I need to ask transfer center for accepting info first. With a lot of back and forth. I informed Rosanne that I will inform insurance to call her directly. Addendum entered by Irving Keane RN 09/22/24 14:58: 1458 clinicals faxed to [facility] [employer] [facility] at [phone]. Addendum entered by Irving Keane RN 09/22/24 14:44: 1430 received call from [facility] rehabilitation case coordinator Avani handling the case. I informed her that pt needs transfer to higher level hospital, no accepting facility as of now. She stated to fax clinicals to [phone]. Her contact number is [phone] Ext [phone]. She stated once we have an accepting she will work on getting us the auth. 1244 clinicals faxed to [facility]. Addendum entered by Irving Keane RN 09/22/24 10:33: 1028 called [facility], spoke to Chelly and initiated the transfer. Chelly stated she will send me acknowledgement email. Email provided. She stated the nurse will call me back for verbal clinicals. Addendum entered by Irving Keane RN 09/22/24 10:21: 1015 called [facility]EL ANGEL, initiated the transfer request using automated system. I also faxed face sheet to [facility] per automated instructions. Addendum entered by Irving Keane RN 09/22/24 09:25: [address] Robles notes Dr. Monson saw the patient today and recommended to [facility] the patient to [facility] or [facility] center given complex case . I will reach tertiary hospitals for transfer. Addendum entered by Irving Keane RN 09/22/24 09:24: 0916 called [facility], spoke to Brenna and initiated the transfer. Addendum entered by Irving Keane RN 09/22/24 08:20: 0820 clinicals sent to [facility] and [facility]. Original Note: [address] Enriquez pt needs to be transferred for displaced comminuted angulated supracondylar hip fx needs higher level orthopedic services.
[2024-09-22] MEDS: allopurinoL 100 MG TABLET 300 MG PO (08:48)
[2024-09-22] MEDS: PANTOPRAZOLE INJ 40 MG VIAL IVP (08:48)
[2024-09-22] MEDS: MORPHINE SULF INJ 10 MG/ML VIAL 2 MG IVP (12:25)
--- NOTE | 2024-09-22 13:54 | ESPR_ITS ---
Documentation for date of: 09/22/24 Subjective Subjective Interval history: Patient was Aside this morning. No overnight events. Patient asked me to update her niece about her being transferred. Spoke with the niece and updated her about patient's needs transfer given her complex fracture. No other complaints at this time, we are still pending transfer. Exam Vital Signs Temp Pulse Resp BP Pulse Ox O2 Del Method O2 Flow Rate 96.9 F 60 14 128/66 96 Room Air 2 09/22/24 11:35 09/22/24 11:35 09/22/24 11:35 09/22/24 11:35 09/22/24 11:35 09/22/24 11:35 09/19/24 22:00 Narrative Exam General: A/O x3, no acute distress, frail elderly female Eyes: PERRL, EOMI. Anicteric, vision grossly intact. R eye lid sluggish, but able to open. Ears: No ear pain, no ear discharge, Hearing grossly intact. Nose: No nasal discharge. Mouth/Throat: Dry mucous membranes, no redness, no lesions. Neck: Neck supple, non-tender, no cervical lymphadenopathy. Lungs: Clear CHRISTOPHER to auscultation and percussion, No accessory muscle use. Cardio: Normal S1/S2, regular rhythm, no murmurs, no JVD Abdomen: Soft, non-tender, no palpable masses, peristalsis present, no guarding or rebound. Extremities: Symmetrical, no peripheral edema , non-tender, peripheral pulses presents. Skin: No rashes, no lesions, warm to touch. Neuro: No focal neurological deficits. able to move all extremities. Psych: Cooperative, appropriate mood and effect. Objective Labs 09/22/24 05:08 09/22/24 05:08 Labs: Laboratory Results - last 24 hr 09/22/24 05:08 WBC 4.2 RBC 2.84 L Hgb 9.7 L Hct 30.7 L MCV 108 H MCH 34.2 MCHC 31.6 RDW Std Deviation 55.7 H Plt Count 100 L Neut % (Auto) 64 Lymph % (Auto) 19 Kenton % (Auto) 9 Eos % (Auto) 8 Baso % (Auto) 1 Neut # (Auto) 2.7 Lymph # (Auto) 0.8 L Kenton # (Auto) 0.4 Eos # (Auto) 0.3 Baso # (Auto) 0.0 Immature Gran # (Auto) 0.01 H Absolute Nucleated RBC 0.00 Immature Gran % 0 Nucleated RBC % 0 Sodium 142 Potassium 3.8 Chloride 113 H Carbon Dioxide 24.5 Anion Gap 5 L BUN 26 H Creatinine 1.0 Estim Creat Clear Calc 35.9 L eGFR 56 L BUN/Creatinine Ratio 26 H Glucose 94 Calculated Osmolality 287 Calcium 8.3 Corrected Calcium 9.0 Phosphorus 2.9 Magnesium 1.8 Total Bilirubin 0.4 AST 15 ALT 23 Alkaline Phosphatase 94 Total Protein 4.9 L Albumin 3.1 L Globulin 1.8 L Albumin/Globulin Ratio 1.7 Quality Measures Quality Measures VTE prophylaxis Advance care planning discussed with:: patient and other (niece) Assessment & Plan Assessment Current Active Medications: Generic Name Dose Route Start Last Admin Trade Name Freq PRN Reason Stop Dose Admin Acetaminophen 650 mg 09/19/24 20:36 Acetaminophen 325 Mg Tablet PO 10/19/24 20:35 Q6H PRN PAIN OR FEVER > 101 Hydrocodone Bitart/Acetaminophen 1 tab 09/19/24 20:37 09/21/24 21:56 Hydrocodone/Apap 5/325 Tablet PO 09/24/24 20:36 1 tab Q6HR PRN Administration PAIN SCALE 4-6 (Moderate Allopurinol 300 mg 09/20/24 09:00 09/22/24 08:48 Allopurinol 100 Mg Tablet PO 10/20/24 08:59 300 mg QDAY JUANITO Administration Atorvastatin Calcium 40 mg 09/19/24 21:00 09/21/24 21:41 Atorvastatin Calcium 20 Mg Tablet PO 10/19/24 20:59 40 mg HS JUANITO Administration Heparin Sodium (Porcine) 5,000 unit 09/21/24 15:24 09/22/24 05:57 Heparin Sod Inj 5000 Unit/Ml Vial SC 10/05/24 13:59 5,000 unit Q8HR JUANITO Administration Hydralazine HCl 10 mg 09/19/24 22:00 09/22/24 05:54 Hydralazine Hcl 10 Mg Tablet PO 10/19/24 21:59 10 mg TID JUANITO Administration Sodium Chloride 1,000 mls @ 65 mls/hr 09/19/24 15:56 09/22/24 05:53 Ns IV 10/19/24 15:55 65 mls/hr .[id number] JUANITO Administration Levothyroxine Sodium 88 mcg 09/20/24 06:00 09/22/24 05:54 Levothyroxine Sodium 88 Mcg Tablet PO 10/20/24 05:59 88 mcg ACBR JUANITO Administration Morphine Sulfate 2 mg 09/19/24 20:37 09/22/24 12:25 Morphine Sulf Inj 10 Mg/Ml Vial IVP 09/24/24 20:36 2 mg Q4HR PRN Administration PAIN SCALE 7-10 (Severe Pantoprazole Sodium 40 mg 09/19/24 21:00 09/22/24 08:48 Pantoprazole Inj 40 Mg Vial IVP 10/19/24 20:59 40 mg Q12HR JUANITO Administration Sertraline HCl 50 mg 09/20/24 21:00 09/21/24 21:40 Sertraline Hcl 25 Mg Tablet PO 10/20/24 20:59 50 mg HS JUANITO Administration Trazodone HCl 50 mg 09/20/24 21:00 09/21/24 21:41 Trazodone Hcl 50 Mg Tablet PO 10/20/24 20:59 50 mg HS JUANITO Administration Plan 84 y/o Female with PMH of left hip fracture s/p ORIF, distal femoral fracture with failed implant, recurrent falls, HFpEF (EF 55-60% in 2021), CAD s/p stents, pacemaker, and ICD, CVA, hypothyroidism,gout, depression, and insonmia was admitted to the hospital on 09/19/2024 for left femoral complex fracture. #Left femoral complex fracture #Hx of L hip fracture s/p ORIF #Hx of L femoral fracture with failed implant #Recurrent falls -Patient had a ground level fall and subsequently had trauma to her L LE. -Head CT and Cervical spine CT unremarkable -Hip/Pelvis X-ray unremarkable -Femur X-ray (L) showed acute angulated displaced supracondylar fracture distal femur -LE CT showed acute displaced comminuted angulated supracondylar fracture distal femur with disruption of the sideplate and fracture of the side plate screws. -dr. Monson recommended to transfer patient Plan: -Patient will be transfered -Pain management medication prn -Referred to PT -Orthopedic surgery consulted (Dr. Delgado and Dr. Monson), appreciate recommendations. -Will continue to monitor #Macrocytic anemia #Thrombocytopenia -Patient has Hx of anemia with baseline Hgb in the 10-11 and low platelets in 90-100 -Hgb today 9.7 and platelets 100, MCV 108 -No active signs of bleeding Plan: -Will transfuse if Hgb less than 7 -Will continue to monitor #HFpEF (EF 55-60% 2021) #CAD s/p stents #S/P pacemaker #S/P ICD -Echo in 2021 revealed EF 55-60% -Continue atorvastatin 40mg HS -cardiology consulted for cardiac clearance, ordered echo showed EF 60-65% #Hx of HTN -Continue hydralazine 10mg TID -Holding metoprolol as patient BP is adequately controlled #Hx of gout -Continue allopurinol 300mg daily #Hx of hypothyroidism -Continue levothyroxine 88mcg daily #Hx of depression #Hx of insomnia -Continue sertraline 50mg daily and trazadone 50 mg daily Disposition: Patient seen in [facility] will initiate transfer Diet: Cardiac GI prophylaxis: protonix DVT prophylaxis: Heparin sc Code:Full Case disclosed with Attending Dr. Smith and My senior Dr. Long PGY2. Joe Caba PGY1 Attending Provider Attestation/Addendum 84-year-old female with history of left hip ORIF with failed implant and history of CAD status post stenting, heart failure with preserved EF pacemaker placement who presented for left femoral complex fracture. Emergency room physician discussed with orthopedic team and recommended admission to [facility]. Orthopedic team evaluated patient and recommend to tertiary center and thus started transfer process. I reviewed above note and agree with findings and plans. I have also personally examined the patient with medicine team and went over assessment and plan with medical team including campus recruiting intern and resident physician.
--- NOTE | 2024-09-22 15:03 | PC.SS ---
Rounding note: pending transfer.
--- NOTE | 2024-09-22 15:07 | ESPR_ITS ---
<Statement entered by Jc Sanchez MD - 09/25/24 13:00> I personally examined the patient reviewed the findings patient came to the hospital fracture of the hip no history of cardiovascular problems but appears to be clinically stable given cardiac clearance for surgery based on preserved ejection fraction on cardiac echo agree with the treatment plan recommendation as documented by PGY [address] Dr[address] Benotn Documentation for date of: 09/22/24 Subjective Subjective Interval history: This 84-year-old female with a past medical history of left hip fracture status post ORIF in 2021, distal femoral fracture treated with implant that subsequently failed, HFpEF (EF 55 to 60%, 2021), CAD status post 3 stents, status post pacemaker, status post ICD, distant history of CVA, hypothyroidism, depression, and insomnia who presents after ground-level fall while getting ready for bed. Denies head strike or loss of consciousness, but does have history of falls attributed to faulty balance on left leg. She was evaluated in ED by Dr. Delgado who recommends physical therapy tomorrow to assess how stable patient is weightbearing along with knee immobilizer.in the ED, HR 50, BP 134/62, on 2 L nasal cannula saturating 99%LFTs and ALP mildly elevated.CT cervical spine: no acute fracture, CT head: negative. CT LLE: acute displaced comminuted angulated supracondylar fracture of distal femur with disruption of sideplate and fracture of sideplate screws. XR left hip/pelvis: no acute fracture, CXR: negative PMHx: as noted above Medications: Metoprolol succinate, furosemide, levothyroxine, allopurinol, atorvastatin, sertraline, hydralazine, trazodone SHx: Denies cigarettes, alcohol, illicit drug use PSHx: ORIF left hip, total knee arthroplasty, left distal femur implant, cardiac stents, pacemaker, ICD 09/21/2024: Cardiology team consulted for cardiac clearance for left femur fracture surgery. Patient denied any chest pain or shortness of breath. Endorses having recurrent falls and knee surgeries before. She ended up having ground-level fall complicated with fracture. Vitals showed bradycardia and mild hypertension. Labs revealed stable hemoglobin at 10.1. Chemistry panel unremarkable. Kidney functions showed GFR 50, BUN [address] lower extremity showed acute displaced comminuted angulated supracondylar fracture distal femur with disruption of sideplate. EKG showed electronic atrial pacemaker with QTc 448 and pulse rate 50. Chest x-ray showed no active disease. Head CT was negative. Cervical spine CT showed no acute fracture. We will follow-up on echocardiogram to evaluate recent cardiac functions. Patient does have bradycardia seen on telemetry. Primary team holding metoprolol given bradycardia and giving hydralazine 10 mg 3 times daily. 09/22/2024: Patient was seen and examined at the bedside. Patient is updated regarding her transfer to another facility due to complex fracture. Vitals showed improvement in bradycardia. Labs showed stable hemoglobin at 9.7. Chemistry panel unremarkable. Kidney functions consistent with CKD stage IIIa. All labs and orders were reviewed echocardiogram showed EF 60-65%. Ascending aorta mildly dilated 3.9 cm. Patient is stable from cardiology standpoint for surgery. Exam Vital Signs Temp Pulse Resp BP Pulse Ox O2 Del Method O2 Flow Rate 96.9 F 64 14 124/60 96 Room Air 2 09/22/24 11:35 09/22/24 14:27 09/22/24 11:35 09/22/24 14:27 09/22/24 11:35 09/22/24 11:35 09/19/24 22:00 Narrative Exam GENERAL APPEARANCE: AxOx4, frail elderly female in mild distress. Saturating well on room air. HEENT: NC, AT. MMM. EOMI, clear conjunctiva, oropharynx clear. NECK: Supple without lymphadenopathy. No stiffness or restricted ROM. HEART: paced rhythm, normal S1/S2, no m/r/g. Pacemaker present. LUNGS: CTAB, moving air well. No crackles or wheezes are heard. ABDOMEN: Soft, nontender, nondistended with good bowel sounds heard. BACK: No CVAT, no obvious deformity. EXTREMITIES: Bilateral extremities were evaluated and demonstrates sensation intact to light touch. Palpable pedal pulses are present. No significant edema is present.Left knee demonstrates significant pain and tenderness to palpation. Her pulses are intact. There is she has pain with any range of motion of her knee. It is externally rotated NEUROLOGICAL: Grossly nonfocal. Alert and oriented x 3 CN not formally tested but appear grossly intact. Skin: Warm and dry without any rash. Objective Labs 09/22/24 05:08 09/22/24 05:08 Labs: Laboratory Results - last 24 hr 09/22/24 05:08 WBC 4.2 RBC 2.84 L Hgb 9.7 L Hct 30.7 L MCV 108 H MCH 34.2 MCHC 31.6 RDW Std Deviation 55.7 H Plt Count 100 L Neut % (Auto) 64 Lymph % (Auto) 19 Moore % (Auto) 9 Eos % (Auto) 8 Baso % (Auto) 1 Neut # (Auto) 2.7 Lymph # (Auto) 0.8 L Moore # (Auto) 0.4 Eos # (Auto) 0.3 Baso # (Auto) 0.0 Immature Gran # (Auto) 0.01 H Absolute Nucleated RBC 0.00 Immature Gran % 0 Nucleated RBC % 0 Sodium 142 Potassium 3.8 Chloride 113 H Carbon Dioxide 24.5 Anion Gap 5 L BUN 26 H Creatinine 1.0 Estim Creat Clear Calc 35.9 L eGFR 56 L BUN/Creatinine Ratio 26 H Glucose 94 Calculated Osmolality 287 Calcium 8.3 Corrected Calcium 9.0 Phosphorus 2.9 Magnesium 1.8 Total Bilirubin 0.4 AST 15 ALT 23 Alkaline Phosphatase 94 Total Protein 4.9 L Albumin 3.1 L Globulin 1.8 L Albumin/Globulin Ratio 1.7 Quality Measures Quality Measures VTE prophylaxis Advance care planning discussed with:: patient Assessment & Plan Assessment Current Active Medications: Generic Name Dose Route Start Last Admin Trade Name Freq PRN Reason Stop Dose Admin Acetaminophen 650 mg 09/19/24 20:36 Acetaminophen 325 Mg Tablet PO 10/19/24 20:35 Q6H PRN PAIN OR FEVER > 101 Hydrocodone Bitart/Acetaminophen 1 tab 09/19/24 20:37 09/21/24 21:56 Hydrocodone/Apap 5/325 Tablet PO 09/24/24 20:36 1 tab Q6HR PRN Administration PAIN SCALE 4-6 (Moderate Allopurinol 300 mg 09/20/24 09:00 09/22/24 08:48 Allopurinol 100 Mg Tablet PO 10/20/24 08:59 300 mg QDAY JUANITO Administration Atorvastatin Calcium 40 mg 09/19/24 21:00 09/21/24 21:41 Atorvastatin Calcium 20 Mg Tablet PO 10/19/24 20:59 40 mg HS JUANITO Administration Heparin Sodium (Porcine) 5,000 unit 09/21/24 15:24 09/22/24 14:25 Heparin Sod Inj 5000 Unit/Ml Vial SC 10/05/24 13:59 5,000 unit Q8HR JUANITO Administration Hydralazine HCl 10 mg 09/19/24 22:00 09/22/24 14:27 Hydralazine Hcl 10 Mg Tablet PO 10/19/24 21:59 10 mg TID JUANITO Administration Sodium Chloride 1,000 mls @ 65 mls/hr 09/19/24 15:56 09/22/24 05:53 Ns IV 10/19/24 15:55 65 mls/hr .[id number] JUANITO Administration Levothyroxine Sodium 88 mcg 09/20/24 06:00 09/22/24 05:54 Levothyroxine Sodium 88 Mcg Tablet PO 10/20/24 05:59 88 mcg ACBR JUANITO Administration Morphine Sulfate 2 mg 09/19/24 20:37 09/22/24 12:25 Morphine Sulf Inj 10 Mg/Ml Vial IVP 09/24/24 20:36 2 mg Q4HR PRN Administration PAIN SCALE 7-10 (Severe Pantoprazole Sodium 40 mg 09/19/24 21:00 09/22/24 08:48 Pantoprazole Inj 40 Mg Vial IVP 10/19/24 20:59 40 mg Q12HR JUANITO Administration Sertraline HCl 50 mg 09/20/24 21:00 09/21/24 21:40 Sertraline Hcl 25 Mg Tablet PO 10/20/24 20:59 50 mg HS JUANITO Administration Trazodone HCl 50 mg 09/20/24 21:00 09/21/24 21:41 Trazodone Hcl 50 Mg Tablet PO 10/20/24 20:59 50 mg HS JUANITO Administration Plan This 84-year-old female with a past medical history of left hip fracture status post ORIF in 2021, distal femoral fracture treated with implant that subsequently failed, HFpEF (EF 55 to 60%, 2021), CAD status post 3 stents, status post pacemaker, status post ICD, distant history of CVA, hypothyroidism depression, and insomnia who is admitted for acute left femoral fracture. Cardiology team consulted for cardiac clearance. # HFpEF EF 60-65% per recent echo 2023 # Hypertension # CAD post 3 stents # Status post ICD?D # Status post pacemaker # Sinus bradycardia, improved ?Patient follows Dr. Castellanos in [place] but has not been seen him in long time. EKG showed atrial pacemaker rhythm with pulse rate 50. ?Patient has a longstanding history of left knee pain. Known history of distal femoral nonunion. She had multiple falls in the past and reports her knee feels unstable. Patient had a ground-level fall and subsequently had trauma to her left lower extremity. ?Patient did not use metoprolol and Lasix given bradycardia and no fluid overload respectively. ? Echo showed EF 60-65%. Ascending aorta mildly dilated 3.9 cm. Plan: ? Patient is getting transferred out due to complex left femur surgery per Ortho recommendations ? Continue hydralazine 10 3 times daily and atorvastatin 40 mg at bedtime ? Avoid beta-blockers due to bradycardia ? Pain management as needed ? Daily labs #Left femoral fracture #History of femoral fracture #History of left knee arthroplasty #Recurrent falls #Gout #Hypothyroidism #Depression #Insomnia #Macrocytic anemia Rest of the management as per primary care team. Thank you very much for consulting cardiology team. Continue hydralazine 10 3 times daily for now. Bradycardia improved. echo showed EF 60 to 65%. Patient is scheduled for transfer due to requirement of complex surgery. Plan of care discussed with industrial relations counselor, Dr. Daniel Benton MD, PGY 2
[2024-09-22] MEDS: LACTULOSE SYRUP 20 GM/30 ML UDC 10 GM PO (17:07)
[2024-09-22] MEDS: PANTOPRAZOLE 40 MG TABLET PO (20:42)
[2024-09-22] MEDS: ATORVASTATIN CALCIUM 20 MG TABLET 40 MG PO (20:42)
[2024-09-22] MEDS: traZODone HCL 50 MG TABLET PO (20:42)
[2024-09-22] MEDS: SERTRALINE HCL 25 MG TABLET 50 MG PO (20:43)
[2024-09-23] VITALS (7 sets, daily range): BP systolic 113–129; BP diastolic 45–76; PULSE 70–75; RESP 15–19; TEMP 36.3–36.8; O2SAT 93–97
[2024-09-23] MEDS: LEVOTHYROXINE SODIUM 88 MCG TABLET PO (05:07)
[2024-09-23] MEDS: HEPARIN SOD INJ 5000 UNIT/ML VIAL SC ×2 (05:07→14:51)
[2024-09-23] MEDS: hydrALAZINE HCL 10 MG TABLET PO ×2 (05:07→14:51)
[2024-09-23 05:55] LABS: Basophils % (Auto) 0 % (0-2.5); Eosinophils # (Auto) 0.3 Thou/mm3 (0.0-0.5); Eosinophils % (Auto) 6 % (0-10); Hematocrit 30.7 % (36.0-46.0); Hemoglobin 9.9 g/dL (12.0-16.0); Immature Granulocytes % (Auto) 0 % (0-0); Immature Granulocytes Auto 0.01 Thou/mm3 (0.00-0.00); Lymphocytes # (Auto) 0.6 Thou/mm3 (1.0-4.8); Lymphocytes % (Auto) 11 % (10-50); Mean Corpuscular HGB Conc 32.2 g/dl (31.0-37.0); Mean Corpuscular Hemoglobin 34.1 pg (25.0-35.0); Mean Corpuscular Volume 106 fL (80-100); Monocytes # (Auto) 0.5 Thou/mm3 (0.0-0.8); Monocytes % (Auto) 9 % (0-12); Neutrophils # (Auto) 3.6 Thou/mm3 (1.8-7.7); Neutrophils % (Auto) 73 % (37-80); Nucleated Red Blood Cell % 0 /100 WBC (0); Platelet Count 99 Thou/mm3 (140-440); RDW Standard Deviation 54.1 fL (36.4-46.3)
[2024-09-23 06:31] LABS: Alanine Aminotransferase 21 U/L (10-49); Albumin, Serum 3.3 gm/dL (3.4-4.8); Albumin/Globulin Ratio 1.8 (1.2-2.2); Alkaline Phosphatase 93 U/L (46-116); Anion Gap 5 (7-16); Aspartate Amino Transferase 17 U/L (0-34); BUN/Creatinine Ratio 26 Ratio (12-20); Bilirubin,Total 0.5 mg/dL (0.3-1.2); Blood Urea Nitrogen 31 mg/dL (9-23); Calcium 8.8 mg/dL (8.3-10.6); Calcium (Corrected) 9.4 mg/dL (8.5-10.1); Carbon Dioxide 23.7 mMol/L (20.0-31.0); Chloride 113 mMol/L (98-107); Creatinine (Component) 1.2 mg/dL (0.6-1.3); Globulin 1.8 gm/dL (2.3-3.5); Glucose 100 mg/dL (74-106); Osmolality,Calculated 289 (275-295); Potassium 4.4 mMol/L (3.4-5.1); Sodium 142 mMol/L (136-145); Total Protein 5.1 gm/dL (5.7-8.2); eGFR 45 See Note
--- NOTE | 2024-09-23 08:10 | PC.CM ---
Addendum entered by Irving Keane RN 09/23/24 18:04: 1805 called [facility] pt placement at [phone]. Spoke to Silvana and informed supervisor opening and picking time is 1950. Addendum entered by Irving Keane RN 09/23/24 18:03: 1800 transfer packet is complete with 2 CD's inside including all signatures. Notified bedside nurse of the transfer packet, number to call for report and supervisor opening and picking time. Addendum entered by Irving Keane RN 09/23/24 17:48: 1743 sent paperwork to [facility]. Called [facility], spoke to Sadie to setup the transport. set up mechanic crown assembly machine time is 1950. Addendum entered by Irving Keane RN 09/23/24 17:43: 1733 received call from Silvana with [facility] pt placement at [phone]. She confirmed she received dc summary and have bed for the pt. Pt is accepted at [facility]. Address [address] [place] [address], [place] [address]. Ortho unit Room 3204. Call report at [phone]. Addendum entered by Irving Keane RN 09/23/24 17:07: 1707 faxed dc summary to [facility] at [phone]. Addendum entered by Irving Keane RN 09/23/24 16:37: [address] Frances needs dc summary. Addendum entered by Irving Keane RN 09/23/24 16:32: 1631 called [facility] pt placement at [phone]. Spoke to Silvana, she stated she needs dc summary for the pt and [facility] She asked to fax the dc summary at [phone]. Addendum entered by Irving Keane RN 09/23/24 16:27: 1622 received call from Radha at [facility] that pt has been accepted but per Dr. Jonah Oneill, he will only accept the pt if the pt gets there by Thursday if it is after that he will decline the pt. She stated to coordinate with [place] pt placement after this at [phone]. Addendum entered by Irving Keane RN 09/23/24 15:31: 1531 Callled Alexandre at [facility] at [phone], ext [phone]. I informed that insurance auth has been received and it's already has been faxed at [phone]. He stated pt is medically accepted and financially cleared. Now pt placement will contact after this. Addendum entered by Irving Keane RN 09/23/24 15:05: 1505 faxed insurance auth to Alexandre at [facility] financial clearance dept at [phone]. 1443 received insurance auth via fax. 1436 received call from Minoo at [facility] that insurance auth is approved. Auth # [id number]. She asked fax number so that she can fax me the auth. Fax number provided. Addendum entered by Irving Keane RN 09/23/24 14:22: 1415 Called [facility] case specialist Avani at [phone] Ext [phone] and informed pt is accepted at [facility]. She stated to fax accepting information to [phone]. I faxed her the accepting information right away. Addendum entered by Irving Keane RN 09/23/24 14:09: 1403 received call from Alexandre at [facility] that pt has been medically accepted at [facility]. Address [address] [place] [id number]. , Tax ID [id number]. Accepting Dr. is Dr. Jonah Oneill. . He stated to obtain insurance auth and his direct number is [phone], ext [phone]. His fax is [phone]. Addendum entered by Irving Keane RN 09/23/24 11:41: 1141 images pushed to [facility] using [employer] link. Addendum entered by Irving Keane RN 09/23/24 11:17: 1039 received call from Royal at [facility] that she spoke to her director and her director is OK with giving us a temporary accepting Dr. flores so that we can get the auth. name is Dr. Todd Zacarias. . I asked her about NPI and TAX ID for [facility]. She asked me to call her financial dept at [phone]. Royal also asked me to upload images to [employer]. She is aware that images were send this am through [employer]. Addendum entered by Irving Keane RN 09/23/24 09:32: 0929 spoke to Radha at [facility] and she confirmed she received the images. 919 received call from [facility] Sadiq, spoke to Sven. She asked me if pt is financial cleared. I informed her that insurance was contacted yesterday and they are OK with the transfer. But they need accepting info in order to give auth. Sven stated her orthopedics wants financial clearance first and then she will present the case but she stated she will speak to her director to see how she can proceed. 917 I made the CD's for all the images and sent it to [facility] via [employer] email link. Addendum entered by Irving Keane RN 09/23/24 08:36: 0831 received call from Radha at [facility] to push images. I informed her I can push through [employer]. She stated even though [facility] name shows on [employer], they don't use that system. I provided her my email and she sent me link to upload images. Original Note: 0810 images pushed to [facility] through [employer].
[2024-09-23] MEDS: PANTOPRAZOLE 40 MG TABLET PO (08:48)
[2024-09-23] MEDS: allopurinoL 100 MG TABLET 300 MG PO (08:48)
[2024-09-23] MEDS: MORPHINE SULF INJ 10 MG/ML VIAL 2 MG IVP ×2 (08:54→19:35)
--- NOTE | 2024-09-23 12:00 | ESPR_ITS ---
<Statement entered by Bhaskar Long MD - 09/23/24 15:23> Senior Resident Attestation: I supervised/discussed management plan with pharmacy graduate intern physician Dr. Robles, and was involved in the care of this patient. I personally saw and examined the patient and discussed the assessment and plan with the entire medicine team, including my attending. I agree with the assessment and plan as documented. Patient's care was discussed with attending physician, Dr. Frances. Bhaskar Long MD PGY-2. Documentation for date of: 09/23/24 Subjective Subjective Interval history: Patient was seen at bedside this morning. No overnight events. Patient was stating that she had some left shoulder pain which she has always had as she has arthritis and usually gets steroid injections. She is still pending transfer and no updates are available as of this time. No other complaints at this time. Exam Vital Signs Temp Pulse Resp BP Pulse Ox O2 Del Method O2 Flow Rate 97.4 F 71 16 129/76 95 Room Air 2 09/23/24 07:57 09/23/24 07:57 09/23/24 07:57 09/23/24 07:57 09/23/24 07:57 09/23/24 07:57 09/19/24 22:00 Narrative Exam General: A/O x3, no acute distress, frail elderly female Eyes: PERRL, EOMI. Anicteric, vision grossly intact. R eye lid sluggish, but able to open. Ears: No ear pain, no ear discharge, Hearing grossly intact. Nose: No nasal discharge. Mouth/Throat: Dry mucous membranes, no redness, no lesions. Neck: Neck supple, non-tender, no cervical lymphadenopathy. Lungs: Clear CHRISTOPHER to auscultation and percussion, No accessory muscle use. Cardio: Normal S1/S2, regular rhythm, no murmurs, no JVD Abdomen: Soft, non-tender, no palpable masses, peristalsis present, no guarding or rebound. Extremities: Symmetrical, no peripheral edema , non-tender, peripheral pulses presents. L LE braise in place. Skin: No rashes, no lesions, warm to touch. Neuro: No focal neurological deficits. able to move all extremities. Psych: Cooperative, appropriate mood and effect. Objective Labs 09/23/24 05:32 09/23/24 05:32 Labs: Laboratory Results - last 24 hr 09/23/24 05:32 WBC 5.0 RBC 2.90 L Hgb 9.9 L Hct 30.7 L MCV 106 H MCH 34.1 MCHC 32.2 RDW Std Deviation 54.1 H Plt Count 99 L Neut % (Auto) 73 Lymph % (Auto) 11 [place] % (Auto) 9 Eos % (Auto) 6 Baso % (Auto) 0 Neut # (Auto) 3.6 Lymph # (Auto) 0.6 L Madison # (Auto) 0.5 Eos # (Auto) 0.3 Baso # (Auto) 0.0 Immature Gran # (Auto) 0.01 H Absolute Nucleated RBC 0.00 Immature Gran % 0 Nucleated RBC % 0 Sodium 142 Potassium 4.4 D Chloride 113 H Carbon Dioxide 23.7 Anion Gap 5 L BUN 31 H Creatinine 1.2 Estim Creat Clear Calc 30.0 L eGFR 45 L BUN/Creatinine Ratio 26 H Glucose 100 Calculated Osmolality 289 Calcium 8.8 Corrected Calcium 9.4 Total Bilirubin 0.5 AST 17 ALT 21 Alkaline Phosphatase 93 Total Protein 5.1 L Albumin 3.3 L Globulin 1.8 L Albumin/Globulin Ratio 1.8 Quality Measures Quality Measures VTE prophylaxis Advance care planning discussed with:: patient Assessment & Plan Assessment Current Active Medications: Generic Name Dose Route Start Last Admin Trade Name Samuelq PRN Reason Stop Dose Admin Acetaminophen 650 mg 09/19/24 20:36 Acetaminophen 325 Mg Tablet PO 10/19/24 20:35 Q6H PRN PAIN OR FEVER > 101 Hydrocodone Bitart/Acetaminophen 1 tab 09/19/24 20:37 09/21/24 21:56 Hydrocodone/Apap 5/325 Tablet PO 09/24/24 20:36 1 tab Q6HR PRN Administration PAIN SCALE 4-6 (Moderate Allopurinol 300 mg 09/20/24 09:00 09/23/24 08:48 Allopurinol 100 Mg Tablet PO 10/20/24 08:59 300 mg QDAY JUANITO Administration Atorvastatin Calcium 40 mg 09/19/24 21:00 09/22/24 20:42 Atorvastatin Calcium 20 Mg Tablet PO 10/19/24 20:59 40 mg HS JUANITO Administration Heparin Sodium (Porcine) 5,000 unit 09/21/24 15:24 09/23/24 05:07 Heparin Sod Inj 5000 Unit/Ml Vial SC 10/05/24 13:59 5,000 unit Q8HR JUANITO Administration Hydralazine HCl 10 mg 09/19/24 22:00 09/23/24 05:07 Hydralazine Hcl 10 Mg Tablet PO 10/19/24 21:59 10 mg TID JUANITO Administration Levothyroxine Sodium 88 mcg 09/20/24 06:00 09/23/24 05:07 Levothyroxine Sodium 88 Mcg Tablet PO 10/20/24 05:59 88 mcg ACBR JUANITO Administration Morphine Sulfate 2 mg 09/19/24 20:37 09/23/24 08:54 Morphine Sulf Inj 10 Mg/Ml Vial IVP 09/24/24 20:36 2 mg Q4HR PRN Administration PAIN SCALE 7-10 (Severe Pantoprazole Sodium 40 mg 09/22/24 21:00 09/23/24 08:48 Pantoprazole 40 Mg Tablet PO 10/19/24 20:59 40 mg Q12HR JUANITO Administration Sertraline HCl 50 mg 09/20/24 21:00 09/22/24 20:43 Sertraline Hcl 25 Mg Tablet PO 10/20/24 20:59 50 mg HS JUANITO Administration Trazodone HCl 50 mg 09/20/24 21:00 09/22/24 20:42 Trazodone Hcl 50 Mg Tablet PO 10/20/24 20:59 50 mg HS JUANITO Administration Plan 84 y/o Female with PMH of left hip fracture s/p ORIF, distal femoral fracture with failed implant, recurrent falls, HFpEF (EF 55-60% in 2021), CAD s/p stents, pacemaker, and ICD, CVA, hypothyroidism,gout, depression, and insonmia was admitted to the hospital on 09/19/2024 for left femoral complex fracture. #Left femoral complex fracture #Hx of L hip fracture s/p ORIF #Hx of L femoral fracture with failed implant #Recurrent falls -Patient had a ground level fall and subsequently had trauma to her L LE. -Head CT and Cervical spine CT unremarkable -Hip/Pelvis X-ray unremarkable -Femur X-ray (L) showed acute angulated displaced supracondylar fracture distal femur -LE CT showed acute displaced comminuted angulated supracondylar fracture distal femur with disruption of the sideplate and fracture of the side plate screws. -dr. Monson recommended to transfer patient Plan: -Patient will be transfered -Pain management medication prn -Referred to PT -Orthopedic surgery consulted (Dr. Delgado and Dr. Monson), appreciate recommendations. -Will continue to monitor #Macrocytic anemia #Thrombocytopenia -Patient has Hx of anemia with baseline Hgb in the 10-11 and low platelets in 90-100 -Hgb today 9.9 and platelets 99, MCV 106 -No active signs of bleeding Plan: -Will transfuse if Hgb less than 7 -Will continue to monitor #HFpEF (EF 55-60% 2021) #CAD s/p stents #S/P pacemaker #S/P ICD -Echo in 2021 revealed EF 55-60% -Continue atorvastatin 40mg HS -cardiology consulted for cardiac clearance, ordered echo showed EF 60-65% #Hx of HTN -Continue hydralazine 10mg TID -Holding metoprolol as patient BP is adequately controlled #Hx of gout -Continue allopurinol 300mg daily #Hx of hypothyroidism -Continue levothyroxine 88mcg daily #Hx of depression #Hx of insomnia -Continue sertraline 50mg daily and trazadone 50 mg daily Disposition: Patient seen in med surg pending transfer, still no updates. Diet: Cardiac GI prophylaxis: protonix DVT prophylaxis: Heparin sc Code:Full Case disclosed with Attending Dr. Frances and My senior Dr. Long PGY2. Joe Caba PGY1 Attending Provider Attestation/Addendum Poly, Mehreen Frances DO, attest that I was physically present for the [place] portions of the service and evaluated the patient with the resident and I reviewed and discussed the case with the resident and agree with the resident's findings and plans of care as documented above Patient seen and evaluated this AM. Patient reports pain is well controlled with immobilization of LLE. Pending transfer to higher level of care to repair of acute displaced comminuted angulated supracondylar fracture distal femur with disruption of the sideplate and fracture of the side plate screws. No acute events overnight. She denies any active chest pain or shortness of breath. She states that she has some discomfort from her right shoulder which is chronic and due to positioning. Patient remains stable for transfer
[2024-09-23] MEDS: HYDROcodone/APAP 5/325 TABLET 1 TAB PO (15:23)
--- NOTE | 2024-09-23 16:37 | ESDS_ITS ---
<Statement entered by Mehreen Frances DO - 09/23/24 16:47> I, Mehreen Frances DO, attest that I was physically present for the [place] portions of the service and evaluated the patient with the resident and I reviewed and discussed the case with the resident and agree with the resident's findings and plans of care as documented above Planned Discharge Date 09/23/24 DS: Providers Provider Date of admission: 09/19/24 20:30 Primary care physician: Physician No Primary/Family Admitting Provider: Merlin Kramer MD Attending Provider on Admission: Mehreen Frances DO Consults: 09/19/24 19:30 Consult to Orthopedic Stat Comment: Consulting Provider: Tigre Delgado 09/19/24 19:36 Referral Physical Therapy Stat Comment: Physician Instructions: Instructions: Please get her up weightbearing to tolerance on her left lower extremity in her knee immobilizer. Please make sure knee immobilizer fits properly and snugly. Make sure she is able to put it on and off. She has a nonunion distal femur fracture and it acts like a pseudoarthrosis. 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 In 2021 left intertrochanteric hip fracture treated with TFN implant. She has been weightbearing to tolerance. Thanks very much for taking a look at her. I told her that surgical intervention would be very complicated and quite risky. 09/20/24 23:11 Consult to Cardiology Routine Comment: History of CAD, ACD. Consulting Provider: cJ Sanchez Instructions: You saw her several years ago 2021 for preop clearance left hip fracture. Has nonunion distal left femur above total knee below previously fractured left. When she be a candidate for possible reconstruction. It would be a major operation. Attending Provider on DC: Mehreen Frances DO Discharging Provider: Mehreen Frances DO DS: Diagnosis Problem List Completed Was Problem List Reviewed/Reconciled?: Yes Hospital Course Hospital Course Hospital course: 84 y/o Female with PMH of left hip fracture s/p ORIF, distal femoral fracture with failed implant, recurrent falls, HFpEF (EF 55-60% in 2021), CAD s/p stents, pacemaker, and ICD, CVA, hypothyroidism,gout, depression, and insonmia was admitted to the hospital on 09/19/2024 for left femoral complex fracture. In the ED patient came in with chief complaint of a ground-level fall while getting ready for bed. At this time she denied any loss of conscious or striking her head. Initially she was bradycardic, mildly hypertensive, and afebrile. Initial labs were remarkable for macrocytic anemia, and transaminitis. Initial imaging included a cervical spine CT which did not show any acute cervical fracture, head CT which did not show any acute hemorrhage mass effect or midline shift, hip/pelvis x-ray which showed no hip fracture, left femur x-ray which showed acute angulated displaced supracondylar fracture of distal femur, chest x-ray which was unremarkable, and lower extremity CT which showed an acute displaced comminuted angulated supracondylar fracture of distal femur with disruption of the sideplate and fracture of the sideplate screws. , orthopedic surgeon was consulted and asked for PT evaluation as well as knee immobilizer during patient's admission and after left lower extremity CT came back he consulted Dr. Monson, orthopedic surgeon for a second opinion. Dr. Monson, orthopedic surgeon saw the patient and recommended transfer patient to a university or tertiary care center due to complexity of fracture and repair. Cardiology was also consulted for cardiac clearance and they ordered echo which revealed EF 60-65%. Bradycardia resolved with discontinuation of metoprolol. During patient's hospital stay she remained stable with minimal to no pain and is stable enough to be transfer to another facility at this time. Transfer plan: -Patient to be transferred for orthopedic evaluation given complex L femoral fracture. Problem list: #Left femoral complex fracture #Hx of L hip fracture s/p ORIF #Hx of L femoral fracture with failed implant #Recurrent falls #Macrocytic anemia #Thrombocytopenia #HFpEF (EF 55-60% 2021) #CAD s/p stents #S/P pacemaker #S/P ICD #Hx of HTN #Hx of gout #Hx of hypothyroidism #Hx of depression #Hx of insomnia Case disclosed with Attending Dr. Frances and My senior Dr. Long PGY2. Joe Caba PGY1 Status at Discharge Overall status at discharge: patient is not back to baseline Time Spent with Patient Time attestation: Total time spent providing and/or coordinating discharge services:>35 min Exam Vital Signs Temp Pulse Resp BP Pulse Ox O2 Del Method O2 Flow Rate 97.5 F 74 16 113/73 96 Room Air 2 09/23/24 16:00 09/23/24 16:00 09/23/24 16:00 09/23/24 16:00 09/23/24 16:00 09/23/24 16:00 09/19/24 22:00 Narrative Exam General: A/O x3, no acute distress, frail elderly female Eyes: PERRL, EOMI. Anicteric, vision grossly intact. R eye lid sluggish, but able to open. Ears: No ear pain, no ear discharge, Hearing grossly intact. Nose: No nasal discharge. Mouth/Throat: Dry mucous membranes, no redness, no lesions. Neck: Neck supple, non-tender, no cervical lymphadenopathy. Lungs: Clear CHRISTOPHER to auscultation and percussion, No accessory muscle use. Cardio: Normal S1/S2, regular rhythm, no murmurs, no JVD Abdomen: Soft, non-tender, no palpable masses, peristalsis present, no guarding or rebound. Extremities: Symmetrical, no peripheral edema , non-tender, peripheral pulses presents. L LE braise in place. Skin: No rashes, no lesions, warm to touch. Neuro: No focal neurological deficits. able to move all extremities. Psych: Cooperative, appropriate mood and effect. Discharge Plan Plan Patient condition on transfer: Stable Prescriptions/Referrals Prescriptions/Med Rec: No Action metoprolol succinate [Toprol XL] 200 mg tablet extended release 24 hr 200 mg PO QDAY hydralazine 10 mg tablet 10 mg PO QID atorvastatin 40 mg tablet 40 mg PO QDAY furosemide 20 mg tablet 20 mg PO QDAY estradiol [Vagifem] 10 mcg tablet 10 mcg vaginal DIRECTED Patient Comments: twice a week Rx Instructions: twice a week oxybutynin chloride 10 mg tablet extended release 24hr 1 tab PO QDAY Patient Comments: TAKE 1 TABLET BY MOUTH EVERY DAY famotidine 40 mg tablet 40 tab PO HS levothyroxine 88 mcg tablet 1 tab PO QAM Patient Comments: TAKE 1 TABLET BY MOUTH IN THE MORNING ON AN EMPTY STOMACH ONCE A DAY FOR 90 DAYS Rx Instructions: TAKE 1 TABLET BY MOUTH IN THE MORNING ON AN EMPTY STOMACH EVERY DAY allopurinol 300 mg tablet 300 mg PO QDAY Patient Comments: TAKE 1 TABLET BY MOUTH EVERY DAY sertraline 50 mg tablet 50 mg PO QDAY Patient Comments: TAKE 1 TABLET BY MOUTH EVERY DAY trazodone 50 mg Tablet 50 mg PO HS ibuprofen 400 mg tablet 400 mg PO Q8H PRN (Reason: pain) Qty: 10 0RF Referrals: No Primary/Family,Physician [Primary Care Provider] - Patient/Caregiver Discharge Instructions Print Language: Divehi Quality Discharge Quality Measures VTE prophylaxis
--- NOTE | 2024-09-23 19:09 | PC.NURSE ---
Report given to Estrellita KEARNEY at [facility]. Pt to be admitted to Ortho Unit Room 3204 at phone number [phone].
== END 2024-09-23 20:16 | disposition short-term general hospital (02) | DRG 534 ==
LOC: SERX 19:37 → SERHOLD 21:00 → S3NX 23:01
PROVIDERS: Registered Nurse General Practice; Student in an Organized Health Care Education/Training Program; Emergency Provider Emergency Medicine; Visit Provider Internal Medicine
DX: S72.452A Displaced supracondylar fracture without intracondylar extension of lower end of left femur, initial encounter for closed fracture (principal); I50.32 Chronic diastolic (congestive) heart failure; I11.0 Hypertensive heart disease with heart failure; I25.10 Atherosclerotic heart disease of native coronary artery without angina pectoris; F32.A Depression, unspecified; E03.9 Hypothyroidism, unspecified; G47.00 Insomnia, unspecified; R29.6 Repeated falls; D53.9 Nutritional anemia, unspecified; D69.6 Thrombocytopenia, unspecified; M10.9 Gout, unspecified; M19.012 Primary osteoarthritis, left shoulder; Z86.69 Personal history of other diseases of the nervous system and sense organs; Z86.73 Personal history of transient ischemic attack (TIA), and cerebral infarction without residual deficits; Z95.5 Presence of coronary angioplasty implant and graft; Z96.652 Presence of left artificial knee joint; Z95.810 Presence of automatic (implantable) cardiac defibrillator; Z79.890 Hormone replacement therapy; Z79.899 Other long term (current) drug therapy; W18.30XA Fall on same level, unspecified, initial encounter; Y92.009 Unspecified place in unspecified non-institutional (private) residence as the place of occurrence of the external cause
CPT/HCPCS: 36415; 70450; 71045; 72125; 73502; 73552; 73700; 80053; 80061; 83735; 84100; 85025; 85610; 85730; 86850; 86900; 86901; 93306; 96374; 97162; 99285; J1643; J2270; J2405; J2470; J3475; J7030; A9270; J1644

== ENCOUNTER 2025-07-27 12:05 | Emergency (ER) | payer MEDICARE, MEDICAID, SELFPAY ==
[2025-07-27 13:00] VITALS: BP 100/66; PULSE 55; RESP 18; TEMP 36.6; O2SAT 96; BMI 20.5
--- NOTE | 2025-07-27 13:07 | PD.EDFMALE ---
ED Female Urogenital RME/HPI General Chief complaint: Skin/Abscess/Foreign Body Stated complaint: TOOK BACTRIM FOR UTI, HAS RASH ALL OVER Time Seen by Provider: 07/27/25 13:06 Arrival date/time: 07/27/25 12:05 85-year-old female presents to the emergency room today for complaints of rash patient reports that she is currently being treated for a UTI with Bactrim patient reports that he believes Bactrim caused the rash. Patient reports no fever nausea vomiting unable to breathing or swallowing patient reports mild dysuria Limitations: no limitations Related Data Home Medications ?Medication ?Instructions ?Recorded ?Confirmed atorvastatin 40 mg tablet 40 mg PO QDAY 11/14/21 09/22/24 furosemide 20 mg tablet 20 mg PO QDAY 11/14/21 09/22/24 hydralazine 10 mg tablet 10 mg PO QID 11/14/21 09/22/24 metoprolol succinate 200 mg 200 mg PO QDAY 11/14/21 09/22/24 tablet,extended release 24 hr (Toprol XL) allopurinol 300 mg tablet 300 mg PO QDAY 07/04/22 09/22/24 famotidine 40 mg tablet 40 tab PO HS 07/04/22 09/22/24 levothyroxine 88 mcg tablet 1 tab PO QAM 07/04/22 09/22/24 oxybutynin chloride 10 mg 1 tab PO QDAY 07/04/22 09/22/24 tablet,extended release 24 hr sertraline 50 mg tablet 50 mg PO QDAY 07/04/22 09/22/24 trazodone 50 mg tablet 50 mg PO HS 09/11/22 09/22/24 estradiol 10 mcg vaginal tablet 10 mcg vaginal DIRECTED 03/26/23 09/22/24 (Vagifem) Previous Rx's ?Medication ?Instructions ?Recorded ibuprofen 400 mg tablet 400 mg PO Q8H PRN pain #10 tabs 09/16/22 nitrofurantoin 100 mg PO Q12H 5 days #10 caps 07/27/25 monohydrate/macrocrystals 100 mg capsule (Macrobid) Allergies Allergy/AdvReac Type Severity Reaction Status Date / Time Penicillins Allergy Intermediate SWELLING Verified 07/27/25 12:09 TO BODY sulfamethoxazole (From Allergy Intermediate Rash Verified 07/27/25 12:09 Bactrim) trimethoprim (From Bactrim) Allergy Intermediate Rash Verified 07/27/25 12:09 Review of Systems Review of Systems Systems Reviewed: All systems reviewed, normal except as documented Constitutional Constitutional: Reports system reviewed and no additional complaints, except as documented, Denies fever(s) and Denies headache(s) Eyes Eyes: Reports system reviewed and no additional complaints, except as documented and Denies blurry vision ENT Ears, Nose, Mouth, and Throat: Reports system reviewed and no additional complaints, except as documented, Denies headache(s), Denies nasal congestion and Denies nasal discharge Cardiovascular Cardiovascular: Reports system reviewed and no additional complaints, except as documented, Denies chest pain and Denies dyspnea Respiratory Respiratory: Reports system reviewed and no additional complaints, except as documented, Denies chest congestion, Denies cough and Denies dyspnea Gastrointestinal Gastrointestinal: Reports system reviewed and no additional complaints, except as documented and Denies abdominal pain Genitourinary Genitourinary: Reports system reviewed and no additional complaints, except as documented, Reports dysuria and Denies pelvic pain Integumentary/Breasts Skin/Breast: Reports system reviewed and no additional complaints, except as documented, Reports pruritus and Reports rash Neurologic Neurologic: Reports system reviewed and no additional complaints, except as documented, Reports as per HPI and Denies headache(s) Past Medical History Past Medical History NEUROLOGIC: Negative Seizures CARDIAC: Positive Myocardial Infarction, Cardiac Arrhythmia, Coronary Artery Disease, Congestive Heart Failure and Hypertension RESPIRATORY: Negative Chronic Obstructive Pulmonary Disease (COPD) GENITOURINARY: Negative Renal Disease ENDOCRINE: Positive Hypothyroidism; Negative Diabetes Mellitus Type 1 or Diabetes Mellitus Type 2 OTHER HISTORY: Negative Blood Transfusions, Blood Transfusion Reaction or Anesthesia Reactions Surgical History SURGICAL: Positive Pacemaker Social History SMOKING STATUS: Never smoker SUBSTANCE USE: does not use ED Exam General Limitations: Present no limitations General appearance: Present alert and in no apparent distress Head Head exam: Present atraumatic Eye Eye exam: Present normal appearance, PERRL and EOMI ENT ENT exam: Present normal exam, normal oropharynx and mucous membranes moist Neck Neck exam: Present normal inspection, full ROM and trachea midline Chest Chest inspection: Present normal inspection and symmetric chest wall rise Respiratory Respiratory exam: Present normal lung sounds bilaterally Cardiovascular Cardiovascular exam: Present regular rate, normal rhythm and normal heart sounds Abdominal Exam Abdominal exam: Present soft and normal bowel sounds Extremities Exam Extremities exam: Present normal inspection and full ROM Back Exam Back exam: Present normal inspection and full ROM Neurological Exam Neurological exam: Present alert, oriented X3, CN II-XII intact, normal gait and reflexes normal; Absent motor sensory deficit Psychiatric Psychiatric exam: Present normal affect and normal mood Skin Skin exam: Present warm, dry and rash Course Quality Measures none Orders Category Date Time Status UA, C/S IF [Urinalysis, C/S if Indicated] Stat Lab 07/27/25 14:00 Completed Urine Culture Stat Lab 07/27/25 14:00 Completed Dexamethasone Inj [Decadron Inj] Med 07/27/25 13:07 Discontinued 10 mg PO X1 ONE DiphenhydrAMINE [Benadryl] Med 07/27/25 13:07 Discontinued 12.5 mg PO X1 ONE Nitrofurantoin Macro [Macrobid] Med 07/27/25 15:17 Discontinued 100 mg PO X1 ONE Vital Signs Vital signs: Vital Signs Temperature 97.9 F 07/27/25 13:00 Pulse Rate 55 L 07/27/25 13:00 Respiratory Rate 18 07/27/25 13:00 Blood Pressure 100/66 07/27/25 13:00 Pulse Oximetry (%) 96 07/27/25 13:00 Oxygen Delivery Method Room Air 07/27/25 13:00 O2 saturation 96% on room air within normal limits Urogenital - Female MDM Narrative MDM Narrative:: 85-year-old female presents to the emergency room today for complaints of rash patient reports that she is currently being treated for a UTI with Bactrim patient reports that he believes Bactrim caused the rash. Patient reports no fever nausea vomiting unable to breathing or swallowing patient reports mild dysuria On exam patient well-appearing patient does not appear look toxic no acute distress Patient symptomatology symptoms are consistent with UTI patient will be treated course of antibiotics Urinalysis obtained consistent with UTI Patient does have a rash no evidence of anaphylaxis patient given medication here which improved symptoms will be discharged with medication as well for rash Patient discharged home in no distress to follow-up with primary care doctor in the next 24 to 48 hours and for any worsening symptoms to return to the ER immediately Patient data External records reviewed:: [facility] previous records Clinical information provided by:: patient Social determinants that could affect healthcare access:: none Patient has the following chronic illnesses:: see history How is presenting disease/condition affected by chronic disease/condition?: uneffected by Evaluation data The following diagnostics were reviewed and interpreted by me:: lab results Lab and/or radiology exams considered but not ordered:: Labs obtained Interpretation Summary: Reviewed by me Medications / Prescriptions Medications or Prescriptions considered but not ordered:: Given Medication administrations:: Medication Administration History Discontinued Medications Dexamethasone Sodium Phosphate (Dexamethasone Sod Phos Inj 10 Mg/Ml Vial) 10 mg PO X1 ONE Stop: 07/27/25 13:08 Last Admin: 07/27/25 13:39 Dose: 10 mg Documented By: Comments: Provider OK'd to give PO Diphenhydramine HCl (Diphenhydramine Elix 25 Mg/10 Ml Udc) 12.5 mg PO X1 ONE Stop: 07/27/25 13:08 Last Admin: 07/27/25 13:38 Dose: 12.5 mg Documented By: Nitrofurantoin Macrocrystals (Nitrofurantoin Macro 100 Mg Capsule) 100 mg PO X1 ONE Stop: 07/27/25 15:18 Last Admin: 07/27/25 16:16 Dose: Not Given Documented By: Non-Admin Reason: Cancelled by Provider Given Consultations Consultation(s) initiated? (list below): No Diagnosis Urogenital Female Differential Diagnosis: urinary tract infection and vaginitis Most likely diagnosis given after review of the tests above:: UTI, allergic reaction to medication Admission Indicated Admission indicated?: not indicated Admission Request Was there a request for admission?: No Disposition Plan Disposition Plan: Discharge Discharge Attestation Discharge Attestation: The patient and all family members were given an opportunity to ask questions and understood the discharge instructions. Discharge instructions specifically effects, indications for sooner follow up or return to the emergency department, and the expected course of current diagnosis. Patient condition: Stable Discharge Plan Plan Patient Disposition: HOME (Self Care) Discharge Disposition comment: Stable Prescriptions/Referrals Prescriptions/Med Rec: New nitrofurantoin monohyd/m-cryst [Macrobid] 100 mg capsule 100 mg PO Q12H 5 Days Qty: 10 0RF Rx Instructions: must administer with a meal/food No Action metoprolol succinate [Toprol XL] 200 mg tablet extended release 24 hr 200 mg PO QDAY hydralazine 10 mg tablet 10 mg PO QID atorvastatin 40 mg tablet 40 mg PO QDAY furosemide 20 mg tablet 20 mg PO QDAY estradiol [Vagifem] 10 mcg tablet 10 mcg vaginal DIRECTED Patient Comments: twice a week Rx Instructions: twice a week oxybutynin chloride 10 mg tablet extended release 24hr 1 tab PO QDAY Patient Comments: TAKE 1 TABLET BY MOUTH EVERY DAY famotidine 40 mg tablet 40 tab PO HS levothyroxine 88 mcg tablet 1 tab PO QAM Patient Comments: TAKE 1 TABLET BY MOUTH IN THE MORNING ON AN EMPTY STOMACH ONCE A DAY FOR 90 DAYS Rx Instructions: TAKE 1 TABLET BY MOUTH IN THE MORNING ON AN EMPTY STOMACH EVERY DAY allopurinol 300 mg tablet 300 mg PO QDAY Patient Comments: TAKE 1 TABLET BY MOUTH EVERY DAY sertraline 50 mg tablet 50 mg PO QDAY Patient Comments: TAKE 1 TABLET BY MOUTH EVERY DAY trazodone 50 mg Tablet 50 mg PO HS ibuprofen 400 mg tablet 400 mg PO Q8H PRN (Reason: pain) Qty: 10 0RF Problem List Clinical Impression: UTI (urinary tract infection) Patient/Caregiver Discharge Instructions Education Materials: ED CYSTITIS Female Adult Additional Instructions: Please follow up with your primary care doctor in the next 24-48hrs for any worsening symptoms return here immediately Please have repeat urinalysis in 1 week Print Language: [place] Stand Alone Forms: [facility] Award Info., Patient Portal Info Letter PA/PHLEBOTOMIST LAB ASSISTANT Supervising Physician PA/PHLEBOTOMIST LAB ASSISTANT Supervising Physician: Dr. molina
[2025-07-27] MEDS: DiphenhydrAMINE ELIX 25 MG/10 ML UDC 12.5 MG PO (13:38)
[2025-07-27] MEDS: DEXAMETHASONE SOD PHOS INJ 10 MG/ML VIAL PO (13:39)
[2025-07-27 14:24] LABS: Collection Type, Urine Clean Catch
[2025-07-27 14:52] LABS: Bacteria,Urine 4+; Bilirubin,Urine Negative (Negative); Blood,Urine Trace (Negative); Color,Urine Yellow (Lt Yel-Yel); Glucose, Urine Negative (Negative); Hyaline Casts,Urine < 1 /hpf (0-1); Ketones,Urine Negative (Negative); Leukocyte Esterase,Urine Positive (Negative); Nitrite,Urine Negative (Negative); PH,Urine 6.0 (5.0-7.0); Protein,Urine Negative (Neg - Trace); RBC,Urine 5 /hpf (0-3); Specific Gravity,Urine 1.009 (1.001-1.035); Squamous Epithelial Cell,Urine 3 /hpf (0-5); Urobilinogen,Urine Negative mg/dL (0.0-1.0); WBC,Urine 34 /hpf (0-5)
[2025-07-27 15:00] LABS: Clarity,Urine Hazy (Clear/Hazy); Culture Indicated,Urine Yes
== END 2025-07-27 17:26 | disposition home or self-care (01) ==
LOC: SERX 16:56
PROVIDERS: Nurse Practitioner Primary Care; Emergency Provider Emergency Medicine; PCP Family Medicine
DX: N39.0 Urinary tract infection, site not specified (principal)
CPT/HCPCS: 81001; 87086; 99283; J1100; A9270